=== PATIENT | male | born 1930 | race Caucasian/White ===

== ENCOUNTER → 2016-11-06 | Outpatient (CLI) | payer MEDICARE, BC ==
--- NOTE | 2016-11-06 13:40 | US ---
EXAMINATION TYPE: US kidneys/renal and bladder DATE OF EXAM: 11/06/2016 1:18 PM COMPARISON: CT in pacs October 03, 2016 CLINICAL HISTORY: History of kidney stones, hydronephrosis. EXAM MEASUREMENTS: Right Kidney: 12.2 x 6.0 x 5.3cm Left Kidney: 12.4 x 5.2 x 5.2cm TECHNOLOGIST IMPRESSION: Exam is slightly suboptimal secondary to patient's large body habitus. Right Kidney: 0.5cm echogenic focus inferior pole correlates with CT Left Kidney: wnl Bladder: limited visualization, not fully distended Bilateral Jets seen: no There is no evidence for hydronephrosis at this point in time. No masses are identified. The urinary bladder is poorly distended and thus suboptimally evaluated. IMPRESSION: Stable 5 mm nonobstructing calculus lower pole level right kidney. Interval resolution of right-sided hydronephrosis suggest passage of right ureter calculus. Clinical correlation advised. Normal Values: Renal Length = 9 - 12cm Bladder Wall: < 0.3cm
== END | disposition home or self-care (01) ==
LOC: RADUSWWP 12:52
PROVIDERS: ATTEND Urology
DX: N20.1 Calculus of ureter (principal)
CPT/HCPCS: 76770

== ENCOUNTER 2017-03-22 23:31 | Inpatient (IN) | payer MEDICARE, BC ==
--- NOTE | 2017-03-23 00:19 | ED ---
General Adult HPI - General Chief complaint: Fever Stated complaint: Fever/Back Pain Time Seen by Provider: 03/22/17 23:35 Source: patient Mode of arrival: EMS Limitations: no limitations - History of Present Illness Initial comments: This patient is an 86-year-old man transferred here from outside hospital to be admitted for suspected sepsis. The patient states that his symptoms began on , when he was not feeling quite right and had about 45 episodes of vomiting. He did not notice any blood or coffee-ground material. He states that he was not really having much in way of abdominal pain. he had no change in bowel movements or any bloody or dark tarry stools. Today, the patient states that he was feeling generally weak and fatigued. He took about a 3 hour nap which she states is unusual for him, and then when he woke he noticed that he had been incontinent of urine and he was feeling so weak that he couldn't stand. He was having trouble getting out of bed he phoned EMS who brought him to the other hospital. There he was found to have a fever, leukocytosis, and transferred here for additional evaluation and treatment. Patient denies having a significant cough or dyspnea. No chest pain. No abdominal pain. Patient has not had any further vomiting today or any change in bowel movements. Patient denies dysuria. Onset/Timin -: days(s) - Related Data Home Medications Medication Instructions Recorded Confirmed Lisinopril [Zestril] 2.5 mg PO QAM 05/25/15 03/23/17 glipiZIDE [Glucotrol] 10 mg PO DAILY 10/03/16 03/23/17 metFORMIN HCL [Glucophage] 500 mg PO W/SUPPER 10/03/16 03/23/17 Meloxicam 15 mg PO DAILY 03/22/17 03/23/17 Metoprolol Succinate (ER) [Toprol 100 mg PO DAILY 03/22/17 03/23/17 Xl] Rivaroxaban [Xarelto] 10 mg PO HS 03/22/17 03/23/17 metFORMIN HCL [Metformin HCl] 1,000 mg PO QAM 03/22/17 03/23/17 Allergies Allergy/AdvReac Type Severity Reaction Status Date / Time No Known Allergies Allergy Verified 03/22/17 23:44 Review of Systems ROS Statement: Those systems with pertinent positive or pertinent negative responses have been documented in the HPI. ROS Other: All systems not noted in ROS Statement are negative. Constitutional: Reports: fever, weakness Eyes: Denies: vision change Respiratory: Denies: cough, dyspnea, wheezes Cardiovascular: Denies: chest pain, palpitations, orthopnea Endocrine: Reports: fatigue Gastrointestinal: Reports: as per HPI, nausea, vomiting. Denies: abdominal pain , diarrhea, constipation, melena, hematochezia Genitourinary: Denies: dysuria, hematuria Musculoskeletal: Denies: back pain Skin: Denies: rash Neurological: Reports: weakness (Generalized). 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 History of Any Multi-Drug Resistant Organisms: None Reported Past Surgical History: Orthopedic Surgery Additional Past Surgical History / Comment(s): ANKLE SURG WITH PINS. Past Anesthesia/Blood Transfusion Reactions: No Reported Reaction Past Psychological History: No Psychological Hx Reported Smoking Status: Current every day smoker Past Alcohol Use History: Occasional Additional Past Alcohol Use History / Comment(s): CURRENTLY SMOKES A PIPE., STARTED SMOKING AROUND AGE 19. Past Drug Use History: None Reported - Past Family History Mother Family Medical History: No Reported History General Exam General appearance: alert, in no apparent distress Head exam: Present: atraumatic, normocephalic Eye exam: Present: normal appearance. Absent: scleral icterus, conjunctival injection ENT exam: Present: mucous membranes dry Neck exam: Present: normal inspection, full ROM Respiratory exam: Present: normal lung sounds bilaterally, rales (Bilateral bases). Absent: respiratory distress, wheezes, rhonchi, stridor Cardiovascular Exam: Present: normal rhythm, tachycardia, normal heart sounds. Absent: systolic murmur, diastolic murmur, rubs, gallop GI/Abdominal exam: Present: soft. Absent: distended, tenderness, guarding, rebound, mass Extremities exam: Present: normal inspection, normal capillary refill. Absent: pedal edema, calf tenderness Back exam: Present: normal inspection. Absent: CVA tenderness (R), CVA tenderness (L) Neurological exam: Present: alert. Absent: motor sensory deficit Skin exam: Present: warm, dry, intact, normal color. Absent: rash Course Vital Signs 03/22/17 03/23/17 03/23/17 23:42 01:28 02:35 Temperature 99.1 F 97.8 F 97.8 F Pulse Rate 116 H 99 88 Respiratory 20 18 18 Rate Blood Pressure 127/65 121/64 124/63 O2 Sat by Pulse 99 99 99 Oximetry - Reevaluation(s) Reevaluation #1: 03/23/17 03:31 Discussed medications with the patient he is not able to identify why he is taking the Xarelto. EKG Findings - EKG Results: EKG: interpreted by AMINA, sinus rhythm (Rate 89 bpm), normal axis, normal QRS, normal ST/T, no acute changes Medical Decision Making - Medical Decision Making This patient is an 86-year-old man transferred here from the outside hospital where he had gone for vomiting and weakness. The patient did appear septic, without obvious source of infection, on arrival there and was started on Zosyn transferred here. Patient has had cultures of blood and urine will be admitted here. The patient is currently not having flank pain, in fact is without any complaints here. - Lab Data Result diagrams: 03/23/17 00:39 03/23/17 00:39 Lab Results 03/23/17 03/23/17 03/23/17 Range/Units 00:39 00:39 00:39 WBC 19.1 H (3.8-10.6) k/uL RBC 3.68 L (4.30-5.90) m/uL Hgb 11.5 L (13.0-17.5) gm/dL Hct 35.0 L (39.0-53.0) % MCV 95.2 (80.0-100.0) fL MCH 31.2 (25.0-35.0) pg MCHC 32.8 (31.0-37.0) g/dL RDW 13.0 (11.5-15.5) % Plt Count 263 (150-450) k/uL Neutrophils % 90 % Lymphocytes % 4 % Monocytes % 4 % Eosinophils % 1 % Basophils % 0 % Neutrophils # 17.2 H (1.3-7.7) k/uL Lymphocytes # 0.7 L (1.0-4.8) k/uL Monocytes # 0.8 (0-1.0) k/uL Eosinophils # 0.1 (0-0.7) k/uL Basophils # 0.0 (0-0.2) k/uL Sodium 140 (137-145) mmol/L Potassium 4.7 (3.5-5.1) mmol/L Chloride 109 H (98-107) mmol/L Carbon Dioxide 21 L (22-30) mmol/L Anion Gap 10 mmol/L BUN 39 H (9-20) mg/dL Creatinine 1.80 H (0.66-1.25) mg/dL Est GFR (MDRD) Af Amer 44 (>60 ml/min/1.73 sqM) Est GFR (MDRD) Non-Af 36 (>60 ml/min/1.73 sqM) Glucose 225 H (74-99) mg/dL Plasma Lactic Acid Jay 1.5 (0.7-2.0) mmol/L Calcium 8.2 L (8.4-10.2) mg/dL Total Bilirubin 0.9 (0.2-1.3) mg/dL AST 19 (17-59) U/L ALT 26 (21-72) U/L Alkaline Phosphatase 70 (38-126) U/L Troponin I (0.000-0.034) ng/mL Total Protein 5.5 L (6.3-8.2) g/dL Albumin 3.2 L (3.5-5.0) g/dL 03/23/17 Range/Units 00:39 WBC (3.8-10.6) k/uL RBC (4.30-5.90) m/uL Hgb (13.0-17.5) gm/dL Hct (39.0-53.0) % MCV (80.0-100.0) fL MCH (25.0-35.0) pg MCHC (31.0-37.0) g/dL RDW (11.5-15.5) % Plt Count (150-450) k/uL Neutrophils % % Lymphocytes % % Monocytes % % Eosinophils % % Basophils % % Neutrophils # (1.3-7.7) k/uL Lymphocytes # (1.0-4.8) k/uL Monocytes # (0-1.0) k/uL Eosinophils # (0-0.7) k/uL Basophils # (0-0.2) k/uL Sodium (137-145) mmol/L Potassium (3.5-5.1) mmol/L Chloride (98-107) mmol/L Carbon Dioxide (22-30) mmol/L Anion Gap mmol/L BUN (9-20) mg/dL Creatinine (0.66-1.25) mg/dL Est GFR (MDRD) Af Amer (>60 ml/min/1.73 sqM) Est GFR (MDRD) Non-Af (>60 ml/min/1.73 sqM) Glucose (74-99) mg/dL Plasma Lactic Acid Ajy (0.7-2.0) mmol/L Calcium (8.4-10.2) mg/dL Total Bilirubin (0.2-1.3) mg/dL AST (17-59) U/L ALT (21-72) U/L Alkaline Phosphatase (38-126) U/L Troponin I <0.012 (0.000-0.034) ng/mL Total Protein (6.3-8.2) g/dL Albumin (3.5-5.0) g/dL Disposition Clinical Impression: Fever, SIRS (systemic inflammatory response syndrome), Hyperglycemia, Acute renal failure Disposition: ADMITTED IP TO THIS [facility] Condition: Fair
[2017-03-23 00:50] LABS: Basophils % (A) 0 %; CH 31.1; CHCM 32.8; Eosinophils # (A) 0.1 k/uL (0-0.7); Eosinophils % (A) 1 %; HDW 2.36; HGB 11.5 gm/dL (13.0-17.5); Luc # (Auto) 0.16; Luc % (Auto) 1; Lymphocytes # (A) 0.7 k/uL (1.0-4.8); Lymphocytes % (A) 4 %; MCH 31.2 pg (25.0-35.0); MCHC 32.8 g/dL (31.0-37.0); MCV 95.2 fL (80.0-100.0); Monocytes # (A) 0.8 k/uL (0-1.0); Monocytes % (A) 4 %; Neutrophils # (A) 17.2 k/uL (1.3-7.7); Neutrophils % (A) 90 %; RBC 3.68 m/uL (4.30-5.90); WBC 19.1 k/uL (3.8-10.6)
[2017-03-23 01:03] LABS: Calcium 8.2 mg/dL (8.4-10.2); Potassium 4.7 mmol/L (3.5-5.1); Total Bilirubin 0.9 mg/dL (0.2-1.3); Total Protein 5.5 g/dL (6.3-8.2)
[2017-03-23] MEDS ORDERED: PIPERACILLIN-TAZOBACTAM 3.375 GM in DEXTROSE/WATER 1 50ML.BAG IVPB STA (02:40)
[2017-03-23] MEDS ORDERED: LEVOFLOXACIN 750MG-D5W PMX 750 MG in DEXTROSE/WATER 1 150ML.BAG IVPB STA (02:40)
[2017-03-23 04:30] LABS: Appearance,Urine Clear (Clear); Bilirubin,Urine Negative (Negative); Glucose,Urine (UA) 3+ (Negative); Ketones,Urine Trace (Negative); Leukocyte Esterase,Urine Small (Negative); Mucus,Urine Rare /hpf; Nitrite,Urine Negative (Negative); Particle Count 1553; Protein,Urine Negative (Negative); RBC,Urine 2 /hpf (0-5); Specific Gravity,Urine 1.018 (1.001-1.035); UA Billing (MACRO vs. MICRO) MICRO; Urobilinogen,Urine <2.0 mg/dL (<2.0); WBC,Urine 10 /hpf (0-5)
[2017-03-23 07:13] LABS: Glucose,Whole Blood 106 mg/dL (75-99)
[2017-03-23] MEDS: INSULIN LISPRO (humaLOG) 300 UNIT/3 ML VIAL SQ SCH ×4 (07:34→21:23)
[2017-03-23] MEDS ORDERED: glipiZIDE 10 MG TAB PO SCH ×2 (09:00)
[2017-03-23] MEDS ORDERED: metFORMIN 500 MG TAB PO SCH ×2 (09:00→17:30)
[2017-03-23] MEDS: LISINOPRIL 2.5 MG TAB PO SCH (09:26)
[2017-03-23] MEDS: METOPROLOL SUCCINATE (ER) 100 MG TAB.ER.24H PO SCH (09:53)
[2017-03-23] MEDS ORDERED: POLYETHYLENE GLYCOL 3350 17 GM POWD.PACK PO PRN (09:57)
[2017-03-23] MEDS ORDERED: ACETAMINOPHEN TAB 325 MG TAB PO PRN (10:10)
--- NOTE | 2017-03-23 10:23 | P.HPIM ---
History of Present Illness H&P Date: 03/23/17 Chief Complaint: Generalized weakness This 86-year-old male patient presented to [facility] with a chief complaint of generalized weakness. Patient is from [facility] of both was camping in [place] and presented to the hospital there. Patient states he began feeling poorly on where he had multiple episodes of vomiting. The ER charting says 45 but the patient states it was 5 episodes. He denies any abdominal pain. He states that his emesis was of the food that he had eaten a milky substance he denies any hematemesis. Denies biliary emesis. States has had intermittent fever and chills. He states the intermittent fever and chills sensation still is occurring today. He states he was feeling well enough Saturday03/22/17 to go camping up in [place]. He states he ate breakfast of a cinnamon roll that morning and coffee. However, he began to feel more tired and slept the rest of the day. He states he was transported to the hospital by some friends in the evening around 7 or 8 PM. He denies any lateralizing deficits or speech changes. No dysuria. No hematuria. Patient does have intermittent right hip pain which he states he's had on and off for months. Patient did have a right hydronephrosis diagnosed last September that then subsequently appeared to have cleared on intervening films but was seen again on CAT scan from [place] on 03/22. Patient was seen and evaluated in [place]'s emergency room, did have the aforementioned CT scan which did reveal the right hydronephrosis with distal right renal lithiasis. Stone is 7 mm in diameter and the hydronephrosis is read as moderate with mild hydroureter. An additional punctate nonobstructing stone was seen in the right kidney. No dilated loops of bowel were seen. Sigmoid diverticulosis was noted. Patient is counseled to avoid nuts, seeds, popcorn and eat a higher fiber diet on discharge after his health is otherwise improved. No bulky lymphadenopathy was seen. The aorta was not noted to be dilated. Urinary bladder was noted to be normal. The findings were limited by lack of IV contrast but the unenhanced liver, gallbladder, pancreas, spleen, adrenal glands and left kidney show no abnormality. There are no dilated loops of bowel. Patient did have a CT of the chest without contrast as well which revealed no consolidation or effusion, some mild multifocal parenchymal scarring is seen. Some coronary and aortic calcific atherosclerosis. There were a few mildly prominent lymph nodes but none by no ethel enlargement by CT criteria. Old abnormalities of the ribs from prior known rib fractures were seen. Review of Systems General: Patient complains a sensation of fever and chills. Positive nausea and vomiting on . No further nausea today. No further emesis. Please see GI HEENT: No visual changes but does have cataracts and was supposed to have right cataract surgery which was canceled due to his illness.. No eye pain. No nasal symptoms. No dysphagia.No odynophagia. No ENT pain. Cardiac: No chest pain. No palpitations. Patient states he does have a history of an irregular heart rhythm and that is why he is on Xarelto. He is in a sinus rhythm on EKG on admission and by auscultation today. Pulmonary: No dyspnea. No productive cough. No prominent cough. GI: No abdominal pain. No diarrhea. Last bowel movement was 03/19. Normal pattern is every 2-3 days. No melena. No hematochezia. See general. Positive nausea and emesis . : No dysuria.No hematuria. No hesitancy. No urgency. Positive history of renal lithiasis with hydronephrosis seen on films from 09/2016. Musculoskeletal: Patient states he does have some history of arthritis in his hands with some mild hand pain at times. He does have a history of prior fractures of his ribs. Orthopedic: Prior rib fracture please see musculoskeletal. History of orthopedic surgery and ankle with pins. Integumentary: Denies rash. Denies pruritis. Neurologic: Denies any lateralizing weakness. Did have global weakness upon admission. Denies numbness. Denies tingling. No seizure activity. Denies TIA or CVA history. Endocrine: Positive history of diabetes 20 years controlled on oral medications. No history of thyroid disorder. Heme/Onc: No known history of anemia cancer or adenopathy. Patient is mildly anemic on labs and will check studies. Allergic/Immunologic: No ALLERGIC or immunologic history reported. 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 Patient reports history of arrhythmia for which he is on Xarelto. History of Any Multi-Drug Resistant Organisms: None Reported Past Surgical History: Orthopedic Surgery Additional Past Surgical History / Comment(s): ANKLE SURG WITH PINS. Past Anesthesia/Blood Transfusion Reactions: No Reported Reaction Past Psychological History: No Psychological Hx Reported Smoking Status: Current every day smoker Past Alcohol Use History: Occasional Additional Past Alcohol Use History / Comment(s): CURRENTLY SMOKES A PIPE., STARTED SMOKING AROUND AGE 19. Past Drug Use History: None Reported Additional History: Patient states that his instead from cancer, his child is from an overdose but has 3 remaining grandchildren. 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 - Past Family History Mother Family Medical History: No Reported History Father Family Medical History: No Reported History Medications and Allergies Home Medications Medication Instructions Recorded Confirmed Type Lisinopril [Zestril] 2.5 mg PO QAM 05/25/15 03/23/17 History glipiZIDE [Glucotrol] 10 mg PO DAILY 10/03/16 03/23/17 History metFORMIN HCL [Glucophage] 500 mg PO W/SUPPER 10/03/16 03/23/17 History Meloxicam 15 mg PO DAILY 03/22/17 03/23/17 History Metoprolol Succinate (ER) [Toprol 100 mg PO DAILY 03/22/17 03/23/17 History Xl] Rivaroxaban [Xarelto] 10 mg PO HS 03/22/17 03/23/17 History metFORMIN HCL [Metformin HCl] 1,000 mg PO QAM 03/22/17 03/23/17 History Travoprost [Travatan Z 0.004%] 1 drop BOTH EYES HS 03/24/17 03/24/17 History Allergies Allergy/AdvReac Type Severity Reaction Status Date / Time No Known Allergies Allergy Verified 03/22/17 23:44 Physical Exam Osteopathic Statement: *. No significant issues noted on an osteopathic structural exam other than those noted in the History and Physical/Consult. Vitals: Vital Signs Temp Pulse Pulse Resp BP BP Pulse Ox 03/23/17 07:00 97.0 F L 104 H 18 135/68 97 03/23/17 03:50 97.0 F L 98 16 144/72 100 03/23/17 03:48 97.8 F 88 18 124/63 99 03/23/17 02:35 97.8 F 88 18 124/63 99 03/23/17 01:28 97.8 F 99 18 121/64 99 03/22/17 23:42 99.1 F 116 H 20 127/65 99 Intake and Output 03/22/17 03/23/17 03/23/17 22:59 06:59 14:59 Output Total 300 Balance -300 Output: Urine 300 Other: Voiding Method Urinal # Voids 1 Weight 95.254 kg General: Patient awake alert and oriented x 3. No acute distress. HEENT: Sclerae are clear. Pupils equal, round and reactive to light bilaterally. No cervical adenopathy. No pharyngeal erythema or exudate. No thyromegaly. Lymphatic: No anterior cervical adenopathy. Chest: Heart regular in rate and rhythm positive S1 and S2. No S3. No S4. No clicks, rubs or murmurs. Lungs: Clear to auscultation bilaterally. No wheezes rales or rhonchi. Respirations even and nonlabored. Abdomen/GI: Bowel sounds present in all 4 quadrants. Bowel sounds normoactive. No abdominal tenderness reported. No guarding, rebound, or rigidity. Abdomen is distended. No mass. No hepatomegaly or splenomegaly palpated. Abdomen is obese. No bruits. Rectal exam reveals normal tone there is soft stool in the vault at the tip of the examining finger but not enough extracted to send to the lab for Hemoccult. That which is seen is brown. No rectal mass or tenderness. : No penile discharge. No hernia palpated. No external abnormalities noted. Musculoskeletal/ Extremities: No tenderness on muscular exam. No ecchymosis. Vascular: Radial pulses equal. 2/4. Dorsalis pedis pulses 1 out of 4 on the left and not able to palpate well on the right but do feel a posterior tibial pulse on the right 1 out of 4. Feet are cool. Poor hair growth distally suggestive of chronic vascular disease. [place] medication on left great toe being treated for onychomycosis. Skin: No rash. No sacral breakdown.No heel breakdown. Neurologic: Awake, alert and oriented times 3. No facial droop. Speech is clear. Patient is able to provide full history. He is alert and oriented to self, place and day of the week. Able to provide timeline of the events. 5- out of 5 nutrition associate strength bilaterally. 5- out of 5 biceps and triceps bilaterally. 5- out of 5 quadriceps hamstrings and EHL strength bilaterally. No pronator drift. Pupils equal round and reactive. Extraocular movements intact. Patient reports not as weak as when he came in now however still not sure he will be able to ambulate on his own. Ortho: Chronic joint changes of the hands noted. no acute joint inflammation. Psychiatric: Patient denies depression or anxiety. However does appear sad when discussing of his and child. Denies need for counseling services. Results CBC & Chem 7: 03/25/17 07:30 03/25/17 07:30 Labs: Abnormal Lab Results - Last 24 Hours (Table) 03/23/17 03/23/17 03/23/17 Range/Units 00:39 00:39 04:15 WBC 19.1 H (3.8-10.6) k/uL RBC 3.68 L (4.30-5.90) m/uL Hgb 11.5 L (13.0-17.5) gm/dL Hct 35.0 L (39.0-53.0) % Neutrophils # 17.2 H (1.3-7.7) k/uL Lymphocytes # 0.7 L (1.0-4.8) k/uL Chloride 109 H (98-107) mmol/L Carbon Dioxide 21 L (22-30) mmol/L BUN 39 H (9-20) mg/dL Creatinine 1.80 H (0.66-1.25) mg/dL Glucose 225 H (74-99) mg/dL POC Glucose (mg/dL) (75-99) mg/dL Calcium 8.2 L (8.4-10.2) mg/dL Total Protein 5.5 L (6.3-8.2) g/dL Albumin 3.2 L (3.5-5.0) g/dL Urine Glucose (UA) 3+ H (Negative) Urine Ketones Trace H (Negative) Ur Leukocyte Esterase Small H (Negative) Urine WBC 10 H (0-5) /hpf Urine Mucus Rare H (None) /hpf 03/23/17 Range/Units 07:11 WBC (3.8-10.6) k/uL RBC (4.30-5.90) m/uL Hgb (13.0-17.5) gm/dL Hct (39.0-53.0) % Neutrophils # (1.3-7.7) k/uL Lymphocytes # (1.0-4.8) k/uL Chloride (98-107) mmol/L Carbon Dioxide (22-30) mmol/L BUN (9-20) mg/dL Creatinine (0.66-1.25) mg/dL Glucose (74-99) mg/dL POC Glucose (mg/dL) 106 H (75-99) mg/dL Calcium (8.4-10.2) mg/dL Total Protein (6.3-8.2) g/dL Albumin (3.5-5.0) g/dL Urine Glucose (UA) (Negative) Urine Ketones (Negative) Ur Leukocyte Esterase (Negative) Urine WBC (0-5) /hpf Urine Mucus (None) /hpf CT scan - abdomen: report reviewed (See HPI.) CT scan - chest: report reviewed (See HPI.) Thrombosis Risk Factor Assmnt - DVT/VTE Prophylaxis DVT/VTE Prophylaxis: Pharmacologic Prophylaxis ordered, Mechanical Prophylaxis ordered - Choose All That Apply Each Factor Represents 1 point: Obesity (BMI >25) Each Risk Factor Represents 2 Points: Patient confined to bed (Due to weakness.) Each Risk Factor Represents 3 Points: Age 75 years or older Thrombosis Risk Factor Assessment Total Risk Factor Score: 6 Thrombosis Risk Factor Assessment Level: High Risk Assessment and Plan Plan: Assessment 1. Sepsis with urinary versus abdominal source. Cultures were received by lab and are pending 2. Renal lithiasis with obstructive hydronephrosis. 3. Diabetes mellitus. 4. Acute possibly on chronic renal failure with acute component secondary to dehydration and obstruction. Creatinine normal 2014 but has been elevated end of 2016 at the time of hydronephrosis and obstruction. 5. Hypetension, essential by history. 6. History of chronic tobacco use. 7. 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 8. Osteoarthritis. Plan: 1. Await cultures. Spoke with [place] lab. Their results get sent to [facility] but have not yet been sent. Our cultures here were drawn but are not yet showing any growth. 2. Continue Zosyn and Levofloxacin. 3. Spoke with Dr. Anderson of urology who will evaluate the patient's hydronephrosis. 4. Hold metformin and enalapril in light of worsened renal function and sepsis. 5. Hold meloxicam in light of vomiting and worsened renal failure. 6. SCDs. 7. continue Xarelto unless needs to be held for any surgical procedure planned by Dr. Anderson. 8. NPO until evaluated by Dr. Anderson. 9. Insulin sliding scale. 10. Repeat labs at 1 pm and check Mg, Phos.
[2017-03-23] MEDS: SODIUM CHLORIDE 0.9% 1,000 ML IV SCH ×3 (11:05→21:24)
[2017-03-23 12:43] LABS: Glucose,Whole Blood 92 mg/dL (75-99)
--- NOTE | 2017-03-23 13:04 | P.GSCN ---
History of Present Illness Consult date: 03/23/17 History of present illness: This is a pleasant 86-year-old gentleman transferred from [place] because of a right ureteral stone, probable urinary tract infection with sepsis. The patient was in his usual state of health until when he started feeling poorly. He was having fever and chills. He was tachycardic. He presented to the [facility]. He was referred down to [facility] because of an obstructing right ureteral stone distally white count of 19,000 and elevated creatinine to 1.8. Urine appears to be mildly infected. Most likely this patient has a urinary tract infection with sepsis, an obstructing stone, pyonephrosis. He has no significant history of stones however he was seen in our office about 2 months ago for a possible stone. He generally just doesn't feel well. His vital signs are stable although he looks like he doesn't feel well he is cold and clammy. This patient needs double-J catheter to relieve the obstruction and probable infected urine. 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 Patient reports history of arrhythmia for which he is on Xarelto. History of Any Multi-Drug Resistant Organisms: None Reported Past Surgical History: Orthopedic Surgery Additional Past Surgical History / Comment(s): ANKLE SURG WITH PINS. Past Anesthesia/Blood Transfusion Reactions: No Reported Reaction Past Psychological History: No Psychological Hx Reported Smoking Status: Current every day smoker Past Alcohol Use History: Occasional Additional Past Alcohol Use History / Comment(s): CURRENTLY SMOKES A PIPE., STARTED SMOKING AROUND AGE 19. Past Drug Use History: None Reported - Past Family History Father Family Medical History: No Reported History Mother Family Medical History: No Reported History Medications and Allergies Home Medications Medication Instructions Recorded Confirmed Type Lisinopril [Zestril] 2.5 mg PO QAM 05/25/15 03/23/17 History glipiZIDE [Glucotrol] 10 mg PO DAILY 10/03/16 03/23/17 History metFORMIN HCL [Glucophage] 500 mg PO W/SUPPER 10/03/16 03/23/17 History Meloxicam 15 mg PO DAILY 03/22/17 03/23/17 History Metoprolol Succinate (ER) [Toprol 100 mg PO DAILY 03/22/17 03/23/17 History Xl] Rivaroxaban [Xarelto] 10 mg PO HS 03/22/17 03/23/17 History metFORMIN HCL [Metformin HCl] 1,000 mg PO QAM 03/22/17 03/23/17 History Allergies Allergy/AdvReac Type Severity Reaction Status Date / Time No Known Allergies Allergy Verified 03/22/17 23:44 Surgical - Exam Vital Signs Temp Pulse Resp BP Pulse Ox 99.1 F 116 H 20 127/65 99 03/22/17 23:42 03/22/17 23:42 03/22/17 23:42 03/22/17 23:42 03/22/17 23:42 - General well developed, well nourished, moderate distress - Eyes PERRL - ENT no hearing loss - Neck trachea midline - Respiratory normal respiratory effort - Cardiovascular Rhythm: regular - Abdomen Abdomen: soft, non tender - Genitourinary normal penis with no external lesions - Neurologic normal coordination - Psychiatric oriented to time, oriented to person, oriented to place, speech is normal, memory intact Results - Labs 03/23/17 00:39 03/23/17 00:39 Abnormal Lab Results - Last 24 Hours (Table) 03/23/17 03/23/17 03/23/17 Range/Units 00:39 00:39 04:15 WBC 19.1 H (3.8-10.6) k/uL RBC 3.68 L (4.30-5.90) m/uL Hgb 11.5 L (13.0-17.5) gm/dL Hct 35.0 L (39.0-53.0) % Neutrophils # 17.2 H (1.3-7.7) k/uL Lymphocytes # 0.7 L (1.0-4.8) k/uL Chloride 109 H (98-107) mmol/L Carbon Dioxide 21 L (22-30) mmol/L BUN 39 H (9-20) mg/dL Creatinine 1.80 H (0.66-1.25) mg/dL Glucose 225 H (74-99) mg/dL POC Glucose (mg/dL) (75-99) mg/dL Calcium 8.2 L (8.4-10.2) mg/dL Total Protein 5.5 L (6.3-8.2) g/dL Albumin 3.2 L (3.5-5.0) g/dL Urine Glucose (UA) 3+ H (Negative) Urine Ketones Trace H (Negative) Ur Leukocyte Esterase Small H (Negative) Urine WBC 10 H (0-5) /hpf Urine Mucus Rare H (None) /hpf 03/23/17 Range/Units 07:11 WBC (3.8-10.6) k/uL RBC (4.30-5.90) m/uL Hgb (13.0-17.5) gm/dL Hct (39.0-53.0) % Neutrophils # (1.3-7.7) k/uL Lymphocytes # (1.0-4.8) k/uL Chloride (98-107) mmol/L Carbon Dioxide (22-30) mmol/L BUN (9-20) mg/dL Creatinine (0.66-1.25) mg/dL Glucose (74-99) mg/dL POC Glucose (mg/dL) 106 H (75-99) mg/dL Calcium (8.4-10.2) mg/dL Total Protein (6.3-8.2) g/dL Albumin (3.5-5.0) g/dL Urine Glucose (UA) (Negative) Urine Ketones (Negative) Ur Leukocyte Esterase (Negative) Urine WBC (0-5) /hpf Urine Mucus (None) /hpf Diabetes panel 03/23/17 Range/Units 00:39 Sodium 140 (137-145) mmol/L Potassium 4.7 (3.5-5.1) mmol/L Chloride 109 H (98-107) mmol/L Carbon Dioxide 21 L (22-30) mmol/L BUN 39 H (9-20) mg/dL Creatinine 1.80 H (0.66-1.25) mg/dL Glucose 225 H (74-99) mg/dL Calcium 8.2 L (8.4-10.2) mg/dL AST 19 (17-59) U/L ALT 26 (21-72) U/L Alkaline Phosphatase 70 (38-126) U/L Total Protein 5.5 L (6.3-8.2) g/dL Albumin 3.2 L (3.5-5.0) g/dL Calcium panel 03/23/17 Range/Units 00:39 Calcium 8.2 L (8.4-10.2) mg/dL Albumin 3.2 L (3.5-5.0) g/dL Pituitary panel 03/23/17 Range/Units 00:39 Sodium 140 (137-145) mmol/L Potassium 4.7 (3.5-5.1) mmol/L Chloride 109 H (98-107) mmol/L Carbon Dioxide 21 L (22-30) mmol/L BUN 39 H (9-20) mg/dL Creatinine 1.80 H (0.66-1.25) mg/dL Glucose 225 H (74-99) mg/dL Calcium 8.2 L (8.4-10.2) mg/dL Adrenal panel 03/23/17 Range/Units 00:39 Sodium 140 (137-145) mmol/L Potassium 4.7 (3.5-5.1) mmol/L Chloride 109 H (98-107) mmol/L Carbon Dioxide 21 L (22-30) mmol/L BUN 39 H (9-20) mg/dL Creatinine 1.80 H (0.66-1.25) mg/dL Glucose 225 H (74-99) mg/dL Calcium 8.2 L (8.4-10.2) mg/dL Total Bilirubin 0.9 (0.2-1.3) mg/dL AST 19 (17-59) U/L ALT 26 (21-72) U/L Alkaline Phosphatase 70 (38-126) U/L Total Protein 5.5 L (6.3-8.2) g/dL Albumin 3.2 L (3.5-5.0) g/dL Assessment and Plan Plan: Impression: Obstructing right ureteral stone, acute renal failure due to obstruction, urinary tract infection with sepsis, pyonephrosis, diabetes. Recommendations this patient appears to be septic based on laboratory and clinical findings. With the obstructing stone, the elevated creatinine, and elevated white load cell count and his diabetes I think it would be appropriate to place a double-J catheter urgently this afternoon to relieve the obstruction and probable sepsis. This will be done with sedation later this afternoon.
[2017-03-23 14:04] LABS: Basophils % (A) 0 %; CH 30.9; Eosinophils # (A) 0.1 k/uL (0-0.7); Eosinophils % (A) 1 %; HCT 37.8 % (39.0-53.0); HDW 2.36; HGB 12.1 gm/dL (13.0-17.5); Luc # (Auto) 0.21; Luc % (Auto) 2; Lymphocytes # (A) 0.5 k/uL (1.0-4.8); Lymphocytes % (A) 4 %; MCH 31.1 pg (25.0-35.0); MCHC 32.1 g/dL (31.0-37.0); MCV 96.8 fL (80.0-100.0); Mean Platelet Volume 6.5; Monocytes # (A) 0.8 k/uL (0-1.0); Monocytes % (A) 6 %; Neutrophils # (A) 11.5 k/uL (1.3-7.7); Neutrophils % (A) 88 %; RBC 3.91 m/uL (4.30-5.90); WBC (Perox) 14.07
[2017-03-23 14:09] LABS: Hemoglobin A1C 6.9 % (4.2-6.1)
[2017-03-23 14:19] LABS: Phosphorous 2.3 mg/dL (2.5-4.5)
[2017-03-23 14:20] LABS: Calcium 8.7 mg/dL (8.4-10.2); Magnesium 1.4 mg/dL (1.6-2.3); Potassium 4.7 mmol/L (3.5-5.1)
[2017-03-23 14:27] LABS: % Iron Saturation 7.4 % (20-50)
[2017-03-23] MEDS ORDERED: MIDAZOLAM 2 MG/2 ML VIAL ONE (14:31)
[2017-03-23] MEDS ORDERED: LIDOCAINE 1% INJ 10MG/ML (20 ML MDV) ONE (14:31)
[2017-03-23] MEDS ORDERED: IV FLUID CONTINUATION 300 ML IV ONE (14:31)
[2017-03-23] MEDS ORDERED: PROPOFOL 10 MG/ML 20 ML VIAL IV ONE (14:31)
[2017-03-23] MEDS ORDERED: METOPROLOL TARTRATE 5 MG/5 ML VIAL IVP ONE (14:31)
[2017-03-23] MEDS ORDERED: LIDOCAINE URO-JET JELLY 2% 5 ML KIT URETHRAL ONE (14:43)
[2017-03-23] MEDS ORDERED: LACTATED RINGERS 1,000 ML IV ONE (14:54)
--- NOTE | 2017-03-23 15:03 | P.OP ---
Date of Procedure: 03/23/17 Preoperative Diagnosis: Right ureteral stone, urinary tract infection with sepsis, pyonephrosis Postoperative Diagnosis: Same Procedure(s) Performed: Cystoscopy placement of double-J catheter 6 x 26 right Implants: Anesthesia: MAC Surgeon: Jovanni Anderson Estimated Blood Loss (ml): 0 Pathology: none sent Condition: stable Disposition: PACU Indications for Procedure: The patient is an 86-year-old gentleman transferred from [place] with an obstructing stone urinary tract infection with sepsis and acute renal failure due to the obstruction. He comes for emergent stent placement to relieve the obstruction and drain the pyonephrosis Operative Findings: Description of Procedure: The patient is brought to the operating suite he's placed on the operating table in supine position. He is given IV sedation. Saline came jelly was introduced into the urethra after sterile prep and drape. Cystoscopy Foroblique lens and 22-Cypriot sheath identifies a normal urethra. The prostate minimally obstructing. There is cystitis on the floor the bladder. The right ureteral orifice is intubated with a 035 straight wire. It bypasses the obstructing stone. Over the wires passed a 6 x 26 double-J catheter that coils in the renal pelvis and in the bladder. The stone was distinctly of impacted. There was hydronephrotic de la torre. The bladder is drained and the cystoscope was removed the patient's awake and returned recovery room in good condition.
[2017-03-23 15:11] LABS: Glucose,Whole Blood 98 mg/dL (75-99)
[2017-03-23] MEDS: PIPERACILLIN-TAZOBACTAM 3.375 GM in DEXTROSE/WATER 1 50ML.BAG IVPB SCH ×2 (16:28→23:54)
[2017-03-23 17:01] LABS: Glucose,Whole Blood 129 mg/dL (75-99)
--- NOTE | 2017-03-23 19:02 | FL ---
Fluoroscopy HISTORY: Cystoscopy with stent 5 seconds fluoroscopy time supplied to the referring clinician. 1 intraoperative C-arm images docume nt the procedure. See dictated report from urology.
[2017-03-23 20:29] LABS: Glucose,Whole Blood 137 mg/dL (75-99)
[2017-03-23] MEDS: RIVAROXABAN 10 MG TAB PO SCH (21:23)
[2017-03-24 07:12] LABS: Glucose,Whole Blood 117 mg/dL (75-99)
[2017-03-24] MEDS: INSULIN LISPRO (humaLOG) 300 UNIT/3 ML VIAL SQ SCH ×4 (07:33→21:59)
[2017-03-24] MEDS: LISINOPRIL 2.5 MG TAB PO SCH (07:47)
[2017-03-24] MEDS ORDERED: LEVOFLOXACIN 750MG-D5W PMX 750 MG in DEXTROSE/WATER 1 150ML.BAG IVPB SCH (09:00)
[2017-03-24] MEDS: PIPERACILLIN-TAZOBACTAM 3.375 GM in DEXTROSE/WATER 1 50ML.BAG IVPB SCH (09:08)
[2017-03-24] MEDS: METOPROLOL SUCCINATE (ER) 100 MG TAB.ER.24H PO SCH (09:08)
[2017-03-24 12:45] LABS: Glucose,Whole Blood 216 mg/dL (75-99)
[2017-03-24] MEDS ORDERED: GENTAMICIN PER PHARMACY MISCELLANE PRN (13:04)
--- NOTE | 2017-03-24 13:18 | P.PN ---
Subjective Principal diagnosis: Sepsis This 86 year old male presented with generalized weakness and with workup was determined to have sepsis with a urinary source. Growing Group D Enterococcus in blood cultures. Patient seen and examined this afternoon. Patient states he is feeling better. He states he did feel a little bit disoriented yesterday and is feeling better today. Patient is much more awake and alert and appropriate. QUESTIONS answered regarding patient's current stent, infection. Spoke with granddaughter on the unit as well regarding her questions and concerns. Patient states that his right hip pain that he had been having intermittently is improved. Denies other pain at this time. No dyspnea. Still generally weak but is feeling up to getting up in chair. States he had noted a decrease in his urine output in the day prior to admission which he states seems to be improved today. Objective - Vital Signs Vital signs: Vital Signs Temp 97.0 F L 03/24/17 07:00 Pulse 98 03/24/17 07:00 Resp 16 03/24/17 07:00 BP 158/89 03/24/17 07:00 Pulse Ox 96 03/24/17 07:00 Intake & Output 03/23/17 03/24/17 03/24/17 18:59 06:59 18:59 Intake Total 1000 Output Total 550 575 Balance 450 -575 Intake: IV 400 Oral 600 Output: Urine 550 575 Estimated Blood Loss 0 Other: Voiding Method Urinal Urinal # Voids 1 2 - Exam General: Patient awake alert and oriented x 3. No acute distress. Not as fatigued as yesterday. HEENT: Sclerae are clear. Pupils equal, round and reactive to light bilaterally. No cervical adenopathy. No pharyngeal erythema or exudate. No thyromegaly. Lymphatic: No anterior cervical adenopathy. Chest: Heart regular in rate and rhythm positive S1 and S2. No S3. No S4. No clicks, rubs or murmurs. Lungs: Clear to auscultation bilaterally. No wheezes rales or rhonchi. Respirations even and nonlabored. Abdomen/GI: Bowel sounds present in all 4 quadrants. Bowel sounds normoactive. No abdominal tenderness. Musculoskeletal/ Extremities: No tenderness on muscular exam. No ecchymosis. Vascular: Radial pulses equal. 2/4. Ankles with minimal edema. Skin: No rash. Neurologic: Awake, alert and oriented times 3. No lateralizing deficits noted on gross inspection. - Labs CBC & Chem 7: 03/23/17 13:47 03/23/17 13:47 Labs: Abnormal Lab Results - Last 24 Hours (Table) 03/23/17 03/23/17 03/23/17 Range/Units 00:39 13:47 13:47 WBC 13.0 H (3.8-10.6) k/uL RBC 3.91 L (4.30-5.90) m/uL Hgb 12.1 L (13.0-17.5) gm/dL Hct 37.8 L (39.0-53.0) % Neutrophils # 11.5 H (1.3-7.7) k/uL Lymphocytes # 0.5 L (1.0-4.8) k/uL Chloride 109 H (98-107) mmol/L Carbon Dioxide 21 L (22-30) mmol/L BUN 35 H (9-20) mg/dL Creatinine 1.60 H (0.66-1.25) mg/dL POC Glucose (mg/dL) (75-99) mg/dL Hemoglobin A1c 6.9 H (4.2-6.1) % Phosphorus (2.5-4.5) mg/dL Magnesium 1.4 L (1.6-2.3) mg/dL Iron (49-181) ug/dL % Saturation (20-50) % 03/23/17 03/23/17 03/23/17 Range/Units 13:47 16:53 20:27 WBC (3.8-10.6) k/uL RBC (4.30-5.90) m/uL Hgb (13.0-17.5) gm/dL Hct (39.0-53.0) % Neutrophils # (1.3-7.7) k/uL Lymphocytes # (1.0-4.8) k/uL Chloride (98-107) mmol/L Carbon Dioxide (22-30) mmol/L BUN (9-20) mg/dL Creatinine (0.66-1.25) mg/dL POC Glucose (mg/dL) 129 H 137 H (75-99) mg/dL Hemoglobin A1c (4.2-6.1) % Phosphorus 2.3 L (2.5-4.5) mg/dL Magnesium (1.6-2.3) mg/dL Iron 20 L (49-181) ug/dL % Saturation 7.4 L (20-50) % 03/24/17 Range/Units 07:10 WBC (3.8-10.6) k/uL RBC (4.30-5.90) m/uL Hgb (13.0-17.5) gm/dL Hct (39.0-53.0) % Neutrophils # (1.3-7.7) k/uL Lymphocytes # (1.0-4.8) k/uL Chloride (98-107) mmol/L Carbon Dioxide (22-30) mmol/L BUN (9-20) mg/dL Creatinine (0.66-1.25) mg/dL POC Glucose (mg/dL) 117 H (75-99) mg/dL Hemoglobin A1c (4.2-6.1) % Phosphorus (2.5-4.5) mg/dL Magnesium (1.6-2.3) mg/dL Iron (49-181) ug/dL % Saturation (20-50) % Microbiology - Last 24 Hours (Table) 03/23/17 04:15 Urine Culture - Final Urine,Voided 03/23/17 03:04 Blood Culture Gram Stain - Preliminary Blood Blood Culture - Preliminary Group D Enterococcus 03/23/17 03:04 Blood Culture - Preliminary Blood No Growth after 24 hours Assessment and Plan Plan: Assessment 1. Sepsis secondary to urinary infection with urinary obstruction now improved with double J catheter placed by urology. Positive Group D Enterococcus Bacteremia. 2. Renal lithiasis with obstructive hydronephrosis, now s/p double j catheter. 3. Diabetes mellitus with retinopathy per patient history. 4. Acute possibly on chronic renal failure with acute component secondary to dehydration and obstruction. Creatinine normal 2014 but has been elevated end of 2015 at the time of hydronephrosis and obstruction. 5. Hypetension, essential by history. 6. History of chronic tobacco use. 7. 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 8. Osteoarthritis. 9. Glaucoma history likely as patient indicated needed eye drops and those brought in are Travatan 0.004%. 10. Iron deficiency anemia with retained stores vs. phase reaction up of ferritin. 11. Hypophosphatemia. 12. Hypomagnesemia. Plan: 1. Regarding cultures, spoke with [facility] yesterday. Their results get sent to [facility] but do not have reported results yet. After speaking to [facility] and attempting to call [facility] back ([facility] indicates that we would have to get the results from [facility]) unable to get anyone to answer the phone. Our cultures here were drawn and reveal Group D Enterococcus bacteremia. 2. Change to Unasyn and Gent as growth of group d enterococcus from blood cultures for bacteriocidal coverage with gentamicin. 3. Add daily ferrous sulfate with some degree of iron deficiency and anemia, will need outpatient follow-up to determine accuracy of result versus phase reaction and if true begin work up for source of blood loss. 4. Hold metformin and enalapril in light of worsened renal function and sepsis. 5. Hold meloxicam in light of vomiting and worsened renal failure. 6. SCDs. 7. continue Xarelto and monitor for any bleeding. 8. Back on diabetic diet. 9. Insulin sliding scale. 10. Magnesium replaced and will follow up. 11. Travatan eyedrops brought in by family and will order. 12. Urology recommendations for continued antibiotic therapy prior to any additional surgical intervention appreciated. 13. Phosphorus replaced. 14. Follow electrolytes in AM. 15. Repeat blood cultures to ensure resolution as risk of endocarditis with this bacteria.
[2017-03-24] MEDS ORDERED: POTAS-SOD-PHOS 278-164-250 MG 1 EACH PACKET PO STA (13:22)
--- NOTE | 2017-03-24 13:46 | P.PN ---
Subjective The patient was transferred to [place] from [place] because of urinary tract infection with sepsis. Cystoscopy and placement of right double-J catheter was done yesterday to relieve the obstruction, pyelonephrosis and aid in the treatment of the sepsis. He had acute renal failure due to the obstruction that should be relieved from the catheter. Plan is to treat with antibiotics for approximately 10 days and then do a secondary ureteroscopy stent and stone removal. This has been explained to the and in the patient. He clinically seems to be doing better today with stable vital signs. Objective - Vital Signs Vital signs: Vital Signs Temp 97.0 F L 03/24/17 07:00 Pulse 98 03/24/17 07:00 Resp 16 03/24/17 07:00 BP 158/89 03/24/17 07:00 Pulse Ox 96 03/24/17 07:00 Intake & Output 03/23/17 03/24/17 03/24/17 18:59 06:59 18:59 Intake Total 1000 Output Total 550 575 Balance 450 -575 Intake: IV 400 Oral 600 Output: Urine 550 575 Estimated Blood Loss 0 Other: Voiding Method Urinal Urinal # Voids 1 2 - Labs CBC & Chem 7: 03/23/17 13:47 03/23/17 13:47 Labs: Abnormal Lab Results - Last 24 Hours (Table) 03/23/17 03/23/17 03/23/17 Range/Units 00:39 13:47 13:47 WBC 13.0 H (3.8-10.6) k/uL RBC 3.91 L (4.30-5.90) m/uL Hgb 12.1 L (13.0-17.5) gm/dL Hct 37.8 L (39.0-53.0) % Neutrophils # 11.5 H (1.3-7.7) k/uL Lymphocytes # 0.5 L (1.0-4.8) k/uL Chloride 109 H (98-107) mmol/L Carbon Dioxide 21 L (22-30) mmol/L BUN 35 H (9-20) mg/dL Creatinine 1.60 H (0.66-1.25) mg/dL POC Glucose (mg/dL) (75-99) mg/dL Hemoglobin A1c 6.9 H (4.2-6.1) % Phosphorus (2.5-4.5) mg/dL Magnesium 1.4 L (1.6-2.3) mg/dL Iron (49-181) ug/dL % Saturation (20-50) % 03/23/17 03/23/17 03/23/17 Range/Units 13:47 16:53 20:27 WBC (3.8-10.6) k/uL RBC (4.30-5.90) m/uL Hgb (13.0-17.5) gm/dL Hct (39.0-53.0) % Neutrophils # (1.3-7.7) k/uL Lymphocytes # (1.0-4.8) k/uL Chloride (98-107) mmol/L Carbon Dioxide (22-30) mmol/L BUN (9-20) mg/dL Creatinine (0.66-1.25) mg/dL POC Glucose (mg/dL) 129 H 137 H (75-99) mg/dL Hemoglobin A1c (4.2-6.1) % Phosphorus 2.3 L (2.5-4.5) mg/dL Magnesium (1.6-2.3) mg/dL Iron 20 L (49-181) ug/dL % Saturation 7.4 L (20-50) % 03/24/17 03/24/17 Range/Units 07:10 12:30 WBC (3.8-10.6) k/uL RBC (4.30-5.90) m/uL Hgb (13.0-17.5) gm/dL Hct (39.0-53.0) % Neutrophils # (1.3-7.7) k/uL Lymphocytes # (1.0-4.8) k/uL Chloride (98-107) mmol/L Carbon Dioxide (22-30) mmol/L BUN (9-20) mg/dL Creatinine (0.66-1.25) mg/dL POC Glucose (mg/dL) 117 H 216 H (75-99) mg/dL Hemoglobin A1c (4.2-6.1) % Phosphorus (2.5-4.5) mg/dL Magnesium (1.6-2.3) mg/dL Iron (49-181) ug/dL % Saturation (20-50) % Microbiology - Last 24 Hours (Table) 03/23/17 04:15 Urine Culture - Final Urine,Voided 03/23/17 03:04 Blood Culture Gram Stain - Preliminary Blood Blood Culture - Preliminary Group D Enterococcus 03/23/17 03:04 Blood Culture - Preliminary Blood No Growth after 24 hours
[2017-03-24] MEDS ORDERED: GENTAMICIN 130 MG in SODIUM CHLORIDE 0.9% 100 ML IVPB SCH ×4 (14:00)
[2017-03-24] MEDS: AMPICILLIN-SULBACTAM 3 GM in SODIUM CHLORIDE 0.9% 100 ML IVPB SCH ×2 (15:54→23:17)
[2017-03-24] MEDS: SODIUM CHLORIDE 0.9% 1,000 ML IV SCH (15:54)
[2017-03-24 16:42] LABS: Glucose,Whole Blood 203 mg/dL (75-99)
[2017-03-24 20:59] LABS: Glucose,Whole Blood 171 mg/dL (75-99)
[2017-03-24] MEDS: LATANOPROST 0.005% OPHTH DROPS 2.5 ML BTL BOTH EYES SCH (21:59)
[2017-03-24] MEDS: RIVAROXABAN 10 MG TAB PO SCH (22:00)
[2017-03-24] MEDS: MAGNESIUM OXIDE 400 MG TAB PO SCH (22:00)
[2017-03-25] MEDS: AMPICILLIN-SULBACTAM 3 GM in SODIUM CHLORIDE 0.9% 100 ML IVPB SCH ×4 (05:21→23:23)
[2017-03-25 06:52] LABS: Glucose,Whole Blood 142 mg/dL (75-99)
[2017-03-25 07:45] LABS: Basophils % (A) 0 %; CHCM 33.5; Eosinophils # (A) 0.1 k/uL (0-0.7); Eosinophils % (A) 2 %; HCT 36.9 % (39.0-53.0); HDW 2.56; HGB 12.3 gm/dL (13.0-17.5); Luc # (Auto) 0.32; Luc % (Auto) 4; Lymphocytes % (A) 13 %; MCH 31.1 pg (25.0-35.0); MCHC 33.4 g/dL (31.0-37.0); Mean Platelet Volume 6.8; Monocytes # (A) 0.6 k/uL (0-1.0); Monocytes % (A) 8 %; Neutrophils # (A) 5.8 k/uL (1.3-7.7); Neutrophils % (A) 74 %; RBC 3.97 m/uL (4.30-5.90); RDW 12.9 % (11.5-15.5); WBC 7.9 k/uL (3.8-10.6); WBC (Perox) 8.42
[2017-03-25] MEDS: METOPROLOL SUCCINATE (ER) 100 MG TAB.ER.24H PO SCH (07:48)
[2017-03-25] MEDS: MAGNESIUM OXIDE 400 MG TAB PO SCH (07:48)
[2017-03-25] MEDS: INSULIN LISPRO (humaLOG) 300 UNIT/3 ML VIAL SQ SCH ×5 (07:48→20:52)
[2017-03-25 08:16] LABS: Anion Gap 8 mmol/L; Blood Urea Nitrogen 17 mg/dL (9-20); Calcium 8.7 mg/dL (8.4-10.2); Carbon Dioxide 25 mmol/L (22-30); Chloride 107 mmol/L (98-107); Glucose 145 mg/dL (74-99); Magnesium 1.3 mg/dL (1.6-2.3); Non-African American GFR(MDRD) >60 (>60 ml/min/1.73 sqM); Phosphorous 2.6 mg/dL (2.5-4.5); Potassium 3.9 mmol/L (3.5-5.1); Sodium 140 mmol/L (137-145)
[2017-03-25] MEDS: FERROUS SULFATE 325 MG TAB PO SCH (12:14)
[2017-03-25] MEDS: GENTAMICIN 160 MG in SODIUM CHLORIDE 0.9% 100 ML IVPB SCH (12:14)
[2017-03-25 12:34] LABS: Glucose,Whole Blood 315 mg/dL (75-99)
[2017-03-25] MEDS: SODIUM CHLORIDE 0.9% 1,000 ML IV SCH (13:09)
--- NOTE | 2017-03-25 13:41 | P.PN ---
Subjective Principal diagnosis: Sepsis, urinary tract infection, obstructive uropathy, renal stone, diabetes, acute on chronic kidney failure, iron deficiency anemia, hypomagnesemia. This 86 year old male presented with generalized weakness and with workup was determined to have sepsis with a urinary source. Growing Group D Enterococcus in blood cultures. Patient seen and examined this afternoon. Patient states he is feeling better. He states he did feel a little bit disoriented yesterday and is feeling better today. Patient is much more awake and alert and appropriate. QUESTIONS answered regarding patient's current stent, infection. Spoke with granddaughter on the unit as well regarding her questions and concerns. Patient states that his right hip pain that he had been having intermittently is improved. Denies other pain at this time. No dyspnea. Still generally weak but is feeling up to getting up in chair. States he had noted a decrease in his urine output in the day prior to admission which he states seems to be improved today. Patient is doing much better no Herring catheter at this point his urinary stent is working well was seen Dr. Anderson urology and hopefully prepare for home tomorrow on oral antibiotic stent to be left in for 5 more days patient will have it removed as an outpatient while removing the stone. Objective - Vital Signs Vital signs: Vital Signs Temp 97.6 F 03/25/17 07:00 Pulse 85 03/25/17 07:00 Resp 19 03/25/17 07:00 BP 149/83 03/25/17 07:00 Pulse Ox 94 L 03/25/17 08:02 Intake & Output 03/24/17 03/25/17 03/25/17 18:59 06:59 18:59 Intake Total 800 Output Total 1800 Balance -1000 Intake: Oral 800 Output: Urine 1800 Other: Voiding Method Urinal Urinal Urinal # Voids 4 0 1 # Bowel Movements 1 - Constitutional General appearance: Present: cooperative, disheveled, no acute distress. Absent : average body habitus, mild distress, morbidly obese, obese, severe distress, thin - EENT Eyes: Present: abnormal pupil, normal appearance. Absent: anicteric sclerae, disc margins sharp, edentulous, EOMI, PERRLA, fundus normal, photophobia, dentition normal, poor dentition, ptosis, scleral icterus ENT: Present: normal oropharynx. Absent: hard of hearing, hearing grossly normal, NA/AT, other, pharyngeal erythema, thrush, tonsillar exudates, tonsillar swelling Ears: bilateral: normal - Neck Neck: Present: normal ROM. Absent: lymphadenopathy, other, rigidity, stridor, thyromegaly Carotids: bilateral: upstroke normal Thyroid: bilateral: normal size - Respiratory Respiratory: bilateral: CTA, diminished - Cardiovascular Rhythm: regular Heart sounds: normal: S1, S2 Abnormal Heart Sounds: Present: systolic murmur, S3 Gallop. Absent: diastolic murmur, rub, S4 Gallop, click, other - Gastrointestinal General gastrointestinal: Present: normal bowel sounds, organomegaly, soft. Absent: absent bowel sounds, decreased bowel sounds, distended, hepatomegaly, hyperactive bowel sounds, rigid, scaphoid, splenomegaly, tenderness, umbilical hernia, ventral hernia - Integumentary Integumentary: Present: cellulitis, normal, pale. Absent: calor, cyanotic, decreased turgor, flushed, jaundiced, normal turgor, rash, ulcer - Neurologic Neurologic: Present: CNII-XII intact - Musculoskeletal Musculoskeletal: Present: gait normal, generalized weakness, strength equal bilaterally. Absent: right sided weakness, left sided weakness - Psychiatric Psychiatric: Present: A&O x's 3, appropriate affect - Labs CBC & Chem 7: 03/25/17 07:30 03/25/17 07:30 Labs: Abnormal Lab Results - Last 24 Hours (Table) 03/24/17 03/24/17 03/25/17 Range/Units 16:39 20:48 06:49 RBC (4.30-5.90) m/uL Hgb (13.0-17.5) gm/dL Hct (39.0-53.0) % Glucose (74-99) mg/dL POC Glucose (mg/dL) 203 H 171 H 142 H (75-99) mg/dL Magnesium (1.6-2.3) mg/dL 03/25/17 03/25/17 03/25/17 Range/Units 07:30 07:30 12:32 RBC 3.97 L (4.30-5.90) m/uL Hgb 12.3 L (13.0-17.5) gm/dL Hct 36.9 L (39.0-53.0) % Glucose 145 H (74-99) mg/dL POC Glucose (mg/dL) 315 H (75-99) mg/dL Magnesium 1.3 L (1.6-2.3) mg/dL Microbiology - Last 24 Hours (Table) 03/23/17 03:04 Blood Culture Gram Stain - Final Blood Blood Culture - Final Enterococcus faecalis 03/23/17 03:04 Blood Culture - Final Blood 03/23/17 04:15 Urine Culture - Final Urine,Voided Assessment and Plan Plan: 1 sepsis and urinary tract infection: Remain on antibiotics with Unasyn and gentamicin culture came back positive for group D enterococcus. Patient will be on oral antibiotic for total of 2 weeks. 2 obstructive uropathy: Post stent placement and stone will be removed hopefully when his stent removed in 5 days. 3 acute on chronic kidney failure: Much worsening with dehydration and obstruction continue hydration for now repeat BUN/creatinine by tomorrow again. 4 hypertension: Well controlled on metoprolol XL 100 mg daily and lisinopril 2.5 g a day. 5 diabetes: Continue patient on metformin 500 mg with supper 1000 g in the morning still on Glucotrol 10 mg daily. 6 Hypomagnesemia: On replacement therapy. 7 iron deficiency anemia: Continue iron supplement. 8 anticoagulation: Patient was on Xarelto 10 mg daily we'll continue medication. 9 GI prophylaxis: Patient be on Pepcid 20 mg daily. Discharge instruction: Patient hopefully will be discharged home tomorrow.
[2017-03-25 17:02] LABS: Glucose,Whole Blood 226 mg/dL (75-99)
--- NOTE | 2017-03-25 19:48 | P.PN ---
Subjective The patient is stable hemodynamically. He is growing enterococcus. He'll be placed on oral antibiotics and discharged home in the near future. He should stay on antibiotics until he sees me in the office. I would like to see him late next week I'll arrange for an outpatient surgical procedure remove the stone and the stent Objective - Vital Signs Vital signs: Vital Signs Temp 98.8 F 03/25/17 15:00 Pulse 90 03/25/17 15:00 Resp 18 03/25/17 15:00 BP 144/73 03/25/17 15:00 Pulse Ox 98 03/25/17 15:00 Intake & Output 03/25/17 03/25/17 03/26/17 06:59 18:59 06:59 Intake Total 800 Output Total 1800 Balance -1000 Intake: Oral 800 Output: Urine 1800 Other: Voiding Method Urinal Toilet Urinal # Voids 0 2 # Bowel Movements 1 - Labs CBC & Chem 7: 03/25/17 07:30 03/25/17 07:30 Labs: Abnormal Lab Results - Last 24 Hours (Table) 03/24/17 03/25/17 03/25/17 Range/Units 20:48 06:49 07:30 RBC (4.30-5.90) m/uL Hgb (13.0-17.5) gm/dL Hct (39.0-53.0) % Glucose 145 H (74-99) mg/dL POC Glucose (mg/dL) 171 H 142 H (75-99) mg/dL Magnesium 1.3 L (1.6-2.3) mg/dL 03/25/17 03/25/17 03/25/17 Range/Units 07:30 12:32 17:01 RBC 3.97 L (4.30-5.90) m/uL Hgb 12.3 L (13.0-17.5) gm/dL Hct 36.9 L (39.0-53.0) % Glucose (74-99) mg/dL POC Glucose (mg/dL) 315 H 226 H (75-99) mg/dL Magnesium (1.6-2.3) mg/dL Microbiology - Last 24 Hours (Table) 03/23/17 03:04 Blood Culture Gram Stain - Final Blood Blood Culture - Final Enterococcus faecalis 03/23/17 03:04 Blood Culture - Final Blood
[2017-03-25 20:49] LABS: Glucose,Whole Blood 232 mg/dL (75-99)
[2017-03-25] MEDS: RIVAROXABAN 10 MG TAB PO SCH (20:52)
[2017-03-25] MEDS: LATANOPROST 0.005% OPHTH DROPS 2.5 ML BTL BOTH EYES SCH (20:52)
[2017-03-26] MEDS: AMPICILLIN-SULBACTAM 3 GM in SODIUM CHLORIDE 0.9% 100 ML IVPB SCH ×3 (05:06→18:10)
[2017-03-26] MEDS: GENTAMICIN 160 MG in SODIUM CHLORIDE 0.9% 100 ML IVPB SCH (06:30)
[2017-03-26 07:36] LABS: Glucose,Whole Blood 172 mg/dL (75-99)
[2017-03-26] MEDS: INSULIN LISPRO (humaLOG) 300 UNIT/3 ML VIAL SQ SCH ×4 (08:07→22:21)
[2017-03-26] MEDS: METOPROLOL SUCCINATE (ER) 100 MG TAB.ER.24H PO SCH (08:08)
[2017-03-26 09:43] LABS: ALT 36 U/L (21-72); AST 31 U/L (17-59); Alkaline Phosphatase 84 U/L (38-126); Anion Gap 9 mmol/L; Blood Urea Nitrogen 15 mg/dL (9-20); Carbon Dioxide 25 mmol/L (22-30); Chloride 107 mmol/L (98-107); Glucose 195 mg/dL (74-99); Non-African American GFR(MDRD) >60 (>60 ml/min/1.73 sqM); Potassium 4.3 mmol/L (3.5-5.1); Sodium 141 mmol/L (137-145); Total Bilirubin 0.7 mg/dL (0.2-1.3); Total Protein 6.1 g/dL (6.3-8.2)
[2017-03-26 09:56] LABS: Basophils % (A) 0 %; CH 31.6; CHCM 33.8; Eosinophils # (A) 0.2 k/uL (0-0.7); Eosinophils % (A) 2 %; HCT 39.7 % (39.0-53.0); HDW 2.68; HGB 13.2 gm/dL (13.0-17.5); Luc % (Auto) 3; Lymphocytes # (A) 1.5 k/uL (1.0-4.8); Lymphocytes % (A) 17 %; MCH 31.3 pg (25.0-35.0); MCHC 33.3 g/dL (31.0-37.0); MCV 93.8 fL (80.0-100.0); Mean Platelet Volume 7.2; Monocytes # (A) 0.6 k/uL (0-1.0); Monocytes % (A) 6 %; Neutrophils # (A) 6.6 k/uL (1.3-7.7); Neutrophils % (A) 71 %; RBC 4.23 m/uL (4.30-5.90); RDW 13.2 % (11.5-15.5); WBC 9.3 k/uL (3.8-10.6); WBC (Perox) 9.53
[2017-03-26 09:59] LABS: Calcium 9.1 mg/dL (8.4-10.2)
[2017-03-26] MEDS: SODIUM CHLORIDE 0.9% 1,000 ML IV SCH (11:29)
[2017-03-26 11:57] LABS: Glucose,Whole Blood 241 mg/dL (75-99)
[2017-03-26] MEDS: FERROUS SULFATE 325 MG TAB PO SCH (12:55)
--- NOTE | 2017-03-26 15:36 | P.CONS ---
History of Present Illness - Reason for Consult Consult date: 03/26/17 Bacteremia, UTI - History of Present Illness This is an 86-year-old male who developed vomiting on along with fever and chills, tiredness and sleepiness. He initially presented to [place] [facility] and underwent a CAT scan that did reveal a right hydronephrosis with distal right renal lithiasis. Stone is 7 mm in diameter and the hydronephrosis is read as moderate with mild hydroureter. An additional punctate nonobstructing stone was seen in the right kidney. No dilated loops of bowel were seen. Sigmoid diverticulosis was noted. Urinary bladder was noted to be normal. Patient also had a CAT scan of the chest which showed no consolidation or effusion, some mild multifocal parenchymal scarring noted. Coronary and aortic calcified atherosclerosis. Patient was then transferred to [facility]. Patient was continued on Zosyn and Levaquin. He was seen in consultation by Dr. Anderson from urology and is status post cystoscopy and placement of a double-J catheter on March 23. Dr. Anderson has recommended oral antibiotics and follow-up with him on Saturday. Patient is being prepared for discharge home today. Initial blood culture is positive for enterococcus and consult was placed for bacteremia. Repeat blood culture is showing no growth at 24 hours. Review of Systems All systems: negative Constitutional: Reports chills, Reports daytime sleepiness, Reports fever, Reports malaise, Reports weakness Eyes: denies blurred vision, denies pain Ears, nose, mouth and throat: Denies headache, Denies sore throat Cardiovascular: Denies chest pain, Denies shortness of breath Respiratory: Denies cough Gastrointestinal: Reports vomiting, Denies abdominal pain, Denies diarrhea, Denies nausea Musculoskeletal: Denies myalgias Integumentary: Denies pruritus, Denies rash Neurological: Denies numbness, Denies weakness Psychiatric: Denies anxiety, Denies depression Endocrine: Denies fatigue, Denies weight change Past Medical History Past Medical History: Diabetes Mellitus, Hypertension, Osteoarthritis (OA) ( hands) Additional Past Medical History / Comment(s): 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 Patient reports history of arrhythmia for which he is on Xarelto. History of Any Multi-Drug Resistant Organisms: None Reported Past Surgical History: Orthopedic Surgery Additional Past Surgical History / Comment(s): ANKLE SURG WITH PINS. Past Anesthesia/Blood Transfusion Reactions: No Reported Reaction Past Psychological History: No Psychological Hx Reported Smoking Status: Current every day smoker Past Alcohol Use History: Occasional Additional Past Alcohol Use History / Comment(s): CURRENTLY SMOKES A PIPE., STARTED SMOKING AROUND AGE 19. Past Drug Use History: None Reported - Past Family History Father Family Medical History: No Reported History Mother Family Medical History: No Reported History Medications and Allergies Home Medications Medication Instructions Recorded Confirmed Type Lisinopril [Zestril] 2.5 mg PO QAM 05/25/15 03/23/17 History glipiZIDE [Glucotrol] 10 mg PO DAILY 10/03/16 03/23/17 History metFORMIN HCL [Glucophage] 500 mg PO W/SUPPER 10/03/16 03/23/17 History Metoprolol Succinate (ER) [Toprol 100 mg PO DAILY 03/22/17 03/23/17 History XL] Rivaroxaban [Xarelto] 10 mg PO HS 03/22/17 03/23/17 History metFORMIN HCL [Metformin HCl] 1,000 mg PO QAM 03/22/17 03/23/17 History Travoprost [Travatan Z 0.004%] 1 drop BOTH EYES 03/24/17 03/24/17 History Allergies Allergy/AdvReac Type Severity Reaction Status Date / Time No Known Allergies Allergy Verified 03/22/17 23:44 Physical Exam Vitals: Vital Signs Temp Pulse Resp BP BP Pulse Ox 03/26/17 15:00 97.5 F L 85 22 141/85 97 03/26/17 07:00 97.5 F L 96 22 156/83 96 03/25/17 23:00 97.0 F L 71 18 137/76 97 Intake and Output 03/26/17 03/26/17 03/26/17 06:59 14:59 22:59 Intake Total 200 630 Output Total 1650 350 Balance -1450 280 Intake: Oral 200 630 Output: Urine 1650 350 Other: # Voids 1 # Bowel Movements 0 Gen: This is an 86-year-old male. He is sitting up in bed and appears to be in no acute distress. HEENT: Head is atraumatic, normocephalic. Pupils equal, round. Sclerae is anicteric. NECK: Supple. No JVD. No lymphadenopathy. No thyromegaly. LUNGS: Clear to auscultation. No wheezes or rhonchi. No intercostal retractions. HEART: Regular rate and rhythm. Systolic murmur. ABDOMEN: Soft. Bowel sounds are present. No masses. No tenderness. EXTREMITIES: No pedal edema. No calf tenderness. NEUROLOGICAL: Patient is awake, alert and oriented x3. Cranial nerves 2 through 12 are grossly intact. Results Results: Laboratory Results WBC 9.3 k/uL (3.8-10.6) 03/26/17 07:51 RBC 4.23 m/uL (4.30-5.90) L 03/26/17 07:51 Hgb 13.2 gm/dL (13.0-17.5) 03/26/17 07:51 Hct 39.7 % (39.0-53.0) 03/26/17 07:51 MCV 93.8 fL (80.0-100.0) 03/26/17 07:51 MCH 31.3 pg (25.0-35.0) 03/26/17 07:51 MCHC 33.3 g/dL (31.0-37.0) 03/26/17 07:51 RDW 13.2 % (11.5-15.5) 03/26/17 07:51 Plt Count 326 k/uL (150-450) 03/26/17 07:51 Neutrophils % 71 % 03/26/17 07:51 Lymphocytes % 17 % 03/26/17 07:51 Monocytes % 6 % 03/26/17 07:51 Eosinophils % 2 % 03/26/17 07:51 Basophils % 0 % 03/26/17 07:51 Neutrophils # 6.6 k/uL (1.3-7.7) 03/26/17 07:51 Lymphocytes # 1.5 k/uL (1.0-4.8) 03/26/17 07:51 Monocytes # 0.6 k/uL (0-1.0) 03/26/17 07:51 Eosinophils # 0.2 k/uL (0-0.7) 03/26/17 07:51 Basophils # 0.0 k/uL (0-0.2) 03/26/17 07:51 Sodium 141 mmol/L (137-145) 03/26/17 07:51 Potassium 4.3 mmol/L (3.5-5.1) 03/26/17 07:51 Chloride 107 mmol/L (98-107) 03/26/17 07:51 Carbon Dioxide 25 mmol/L (22-30) 03/26/17 07:51 Anion Gap 9 mmol/L 03/26/17 07:51 BUN 15 mg/dL (9-20) 03/26/17 07:51 Creatinine 0.73 mg/dL (0.66-1.25) 03/26/17 07:51 Est GFR (MDRD) Af Amer >60 (>60 ml/min/1.73 sqM) 03/26/17 07:51 Est GFR (MDRD) Non-Af >60 (>60 ml/min/1.73 sqM) 03/26/17 07:51 Glucose 195 mg/dL (74-99) H 03/26/17 07:51 POC Glucose (mg/dL) 241 mg/dL (75-99) H 03/26/17 11:50 POC Glu Supervisor Liquid Yeast Arminda Madrigal 03/26/17 11:[address] Glu mg/dL 151 mg/dL 03/23/17 00:39 Hemoglobin A1c 6.9 % (4.2-6.1) H 03/23/17 00:39 Plasma Lactic Acid Jay 1.5 mmol/L (0.7-2.0) 03/23/17 00:39 Calcium 9.1 mg/dL (8.4-10.2) 03/26/17 07:51 Phosphorus 2.6 mg/dL (2.5-4.5) 03/25/17 07:30 Magnesium 1.3 mg/dL (1.6-2.3) L 03/25/17 07:30 Iron 20 ug/dL (49-181) L 03/23/17 13:47 TIBC 270 ug/dL (261-462) 03/23/17 13:47 % Saturation 7.4 % (20-50) L 03/23/17 13:47 Ferritin 150 ng/mL (18-464) 03/23/17 13:47 Total Bilirubin 0.7 mg/dL (0.2-1.3) 03/26/17 07:51 AST 31 U/L (17-59) 03/26/17 07:51 ALT 36 U/L (21-72) 03/26/17 07:51 Alkaline Phosphatase 84 U/L (38-126) 03/26/17 07:51 Troponin I <0.012 ng/mL (0.000-0.034) 03/23/17 00:39 Total Protein 6.1 g/dL (6.3-8.2) L 03/26/17 07:51 Albumin 3.4 g/dL (3.5-5.0) L 03/26/17 07:51 Urine Color Yellow 03/23/17 04:15 Urine Appearance Clear (Clear) 03/23/17 04:15 Urine pH 5.0 (5.0-8.0) 03/23/17 04:15 Ur Specific [place] 1.018 (1.001-1.035) 03/23/17 04:15 Urine Protein Negative (Negative) 03/23/17 04:15 Urine Glucose (UA) 3+ (Negative) H 03/23/17 04:15 Urine Ketones Trace (Negative) H 03/23/17 04:15 Urine Blood Negative (Negative) 03/23/17 04:15 Urine Nitrite Negative (Negative) 03/23/17 04:15 Urine Bilirubin Negative (Negative) 03/23/17 04:15 Urine Urobilinogen <2.0 mg/dL (<2.0) 03/23/17 04:15 Ur Leukocyte Esterase Small (Negative) H 03/23/17 04:15 Urine RBC 2 /hpf (0-5) 03/23/17 04:15 Urine WBC 10 /hpf (0-5) H 03/23/17 04:15 Urine Mucus Rare /hpf (None) H 03/23/17 04:15 CBC & Chem 7: 03/26/17 07:51 03/26/17 07:51 Labs: Abnormal Lab Results - Last 24 Hours (Table) 03/25/17 03/25/17 03/26/17 Range/Units 17:01 20:39 07:22 RBC (4.30-5.90) m/uL Glucose (74-99) mg/dL POC Glucose (mg/dL) 226 H 232 H 172 H (75-99) mg/dL Total Protein (6.3-8.2) g/dL Albumin (3.5-5.0) g/dL 03/26/17 03/26/17 03/26/17 Range/Units 07:51 07:51 11:50 RBC 4.23 L (4.30-5.90) m/uL Glucose 195 H (74-99) mg/dL POC Glucose (mg/dL) 241 H (75-99) mg/dL Total Protein 6.1 L (6.3-8.2) g/dL Albumin 3.4 L (3.5-5.0) g/dL Microbiology - Last 24 Hours (Table) 03/25/17 07:30 Blood Culture - Preliminary Blood No Growth after 24 hours Assessment and Plan Plan: This is an 86-year-old male who presented to the hospital with sepsis and urinary tract infection with hydronephrosis secondary to kidney stone with acute kidney injury. Patient was also found to have enterococcus bacteremia and septicemia. PICC line will be arranged and patient will be discharged home on Unasyn for another 12 days. Case management updated. Further recommendations as patient progresses. The above dictated assessment and findings were discussed with Dr. Rehman. The impression and plan of care have been directed as dictated. Barb Goetz nurse practitioner acting as scribe for Dr. Rehman.
[2017-03-26 16:56] LABS: Glucose,Whole Blood 209 mg/dL (75-99)
[2017-03-26 20:43] LABS: Glucose,Whole Blood 254 mg/dL (75-99)
[2017-03-26] MEDS: LATANOPROST 0.005% OPHTH DROPS 2.5 ML BTL BOTH EYES SCH (22:21)
--- NOTE | 2017-03-26 23:39 | P.CON ---
Consult Note - . Consult date: 03/26/17 Assessment/Plan:: This is an 86-year-old male who developed vomiting on along with fever and chills, tiredness and sleepiness. He initially presented to [place] [facility] and underwent a CAT scan that did reveal a right hydronephrosis with distal right renal lithiasis. Stone is 7 mm in diameter and the hydronephrosis is read as moderate with mild hydroureter. An additional punctate nonobstructing stone was seen in the right kidney. No dilated loops of bowel were seen. Sigmoid diverticulosis was noted. Urinary bladder was noted to be normal. Patient also had a CAT scan of the chest which showed no consolidation or effusion, some mild multifocal parenchymal scarring noted. Coronary and aortic calcified atherosclerosis. Patient was then transferred to [facility]. Patient was continued on Zosyn and Levaquin. He was seen in consultation by Dr. Anderson from urology and is status post cystoscopy and placement of a double-J catheter on March 23. Dr. Anderson has recommended oral antibiotics and follow-up with him on Saturday. Patient is being prepared for discharge home today. Initial blood culture is positive for enterococcus and consult was placed for bacteremia. Repeat blood culture is showing no growth at 24 hours. Please see the consult note as dictated by nurse practitioner Mrs. Barb Goetz. This pleasant gentleman has a history of prior urinary infection. Now presents with evidence of sepsis from an outside hospital. Positive blood cultures for enterococcus were noted at that facility as well as our laboratory. The patient 's been taking the operating room and has had a stent placed to relieve the obstruction. He is feeling somewhat better. Exam reveals this pleasant gentleman who is no longer in distress. Follow blood cultures are negative so far. It is in the patient has evidence of enterococcus bacteremia, which routinely would be treated with beta lactam therapy, which should be intravenous given his bacteremia and high risk for secondary infections. Although susceptible to quinolones there is routinely poor clinical outcome with enterococcal bacteremia treated with this class. Constantly of blood cultures negative in the morning, we'll hold Xarelto also, a PICC line replaced and will plan to finish up the 2 weeks of intravenous antibiotic therapy with Unasyn. Inquiring as to his coverage and if antibiotic can be given at home. Discharge planning is in process. At this time I agree with evaluation, assessment and plan as dictated by nurse practitioner Mrs. Brab Goetz.
[2017-03-27] MEDS: AMPICILLIN-SULBACTAM 3 GM in SODIUM CHLORIDE 0.9% 100 ML IVPB SCH ×3 (00:32→11:17)
[2017-03-27 00:47] VITALS: RESP 18
[2017-03-27] MEDS: SODIUM CHLORIDE 0.9% 1,000 ML IV SCH (04:06)
[2017-03-27 07:11] LABS: Glucose,Whole Blood 156 mg/dL (75-99)
[2017-03-27 07:25] VITALS: BP 148/71; PULSE 92; TEMP 97.2
[2017-03-27] MEDS: METOPROLOL SUCCINATE (ER) 100 MG TAB.ER.24H PO SCH (08:19)
[2017-03-27] MEDS: INSULIN LISPRO (humaLOG) 300 UNIT/3 ML VIAL SQ SCH ×2 (08:19→13:22)
[2017-03-27] MEDS: LISINOPRIL 2.5 MG TAB PO SCH (08:26)
[2017-03-27 08:49] LABS: INR 1.2 (<1.1); Prothrombin Time 12.1 sec (9.0-12.0)
[2017-03-27 09:04] LABS: Anion Gap 10 mmol/L; Blood Urea Nitrogen 14 mg/dL (9-20); Calcium 9.2 mg/dL (8.4-10.2); Carbon Dioxide 29 mmol/L (22-30); Chloride 102 mmol/L (98-107); Glucose 178 mg/dL (74-99); Non-African American GFR(MDRD) >60 (>60 ml/min/1.73 sqM); Potassium 3.9 mmol/L (3.5-5.1); Sodium 141 mmol/L (137-145)
[2017-03-27] MEDS ORDERED: LIDOCAINE 2% (PF) 20 MG/ML 10ML SQ ONE (10:58)
--- NOTE | 2017-03-27 12:15 | CDI ---
In responding to this query, please exercise your independent professional judgment. The [facility] Coding Staff and Clinical Documentation Specialists appreciate your assistance in clarifying documentation, maintaining compliance with coding guidelines, accurately documenting patients condition and capturing severity of illness. The fact that a question is asked does not imply that any particular answer is desired or expected. Communication forms are a method of clarifying documentation and are not made part of the Legal Health Record. Thank you in advance for your clarification. Last Revision, August 2015 Jean Sorto [address] [place] [address] Documentation Clarification Form Date: 03/27/2017 11:52:00 AM From: Geni Kaufman Admit Date: 03/23/2017 2:40:00 AM Patient Name: Kj Ibarra Visit Number: [id number] Discharge Date: Dr. Rogers King/Barb Goetz [employer] History/Risk Factors: Chronic kidney failure, Iron deficiency anemia, Diabetes mellitus, Hypertension, Current everyday smoker Admission: BUN 39, CR 1.80, GFR 46 03/23/17 BUN 35, CR 1.60, GFR 41 Patients Baseline: BUN/CR/GFR: Not noted Clinical Indicators: Complains of generalized weakness. Multiple episodes of nausea and vomiting. Vital signs: 127/65 116 20 99.1 Treatment: IV Fluids Monitor labs In order to capture the severity of condition, please clarify if the condition signifies: CKD Stage 1 (GFR > 90) CKD Stage 2 (GFR 60-89) CKD Stage 3 (GFR 30-59) CKD Stage 4 (GFR 15-29) CKD Stage 5 (GFR <15) Unable to determine Other condition, please specify Please document in your progress notes and discharge summary in order to capture severity of illness and risk of mortality. Include clinical findings that support your diagnosis. FYI: Press F11 to launch patient chart. Place X here if this finding has no clinical significance, is not applicable or if you are not able to provide any additional documentation. ARPAND
[2017-03-27 12:28] LABS: Glucose,Whole Blood 279 mg/dL (75-99)
[2017-03-27] MEDS: FERROUS SULFATE 325 MG TAB PO SCH (13:22)
--- NOTE | 2017-03-27 13:32 | IR ---
EXAMINATION TYPE: IR cvc insert >=5 years DATE OF EXAM: 03/27/2017 COMPARISON: NONE CLINICAL HISTORY: Infection Needs long-term intravenous access for antibiotics. PROCEDURE: After informed consent, the skin overlying the left brachial vein was localized with ultrasound and n oted to be compressible and patent. An ultrasound image was obtained and submitted on the patient's chart. The overlying skin was prepped and draped and Lidocaine was used for local anesthesia. A ski n abner was made with a scalpel. Access was gained to the vein under ultrasound guidance with a 21 ga uge needle and a 0.018 inch wire was advanced. Access site was dilated with Peel-Away sheath and cat heter tailored to the appropriate length and advanced such that the distal tip is at the cavoatrial j unction. Spot image was obtained verifying placement. Catheter was fixed to the skin with suture an d a sterile dressing was placed following hemostasis. Catheter was aspirated and flushed with saline . Patient was discharged in stable condition without complication.Maximal barrier technique is utili zed. Ultrasound image is documented on the chart. Ultrasound used with sterile technique. Fluoro time and fluoroscopic images submitted to document procedure: 146 intraoperative C-arm images, 0.5 minutes fluoroscopy time IMPRESSION: STATUS POST ULTRASOUND AND FLUOROSCOPIC GUIDED PICC LINE PLACEMENT, READY FOR USE. THIS PROCEDURE WAS PERFORMED BY THE UNDERSIGNED.
--- NOTE | 2017-03-27 14:42 | P.PN ---
Subjective This 86 year old male presented with generalized weakness and with workup was determined to have sepsis with a urinary source. Growing Group D Enterococcus in blood cultures. Patient seen and examined this afternoon. Patient states he is feeling better. He states he did feel a little bit disoriented yesterday and is feeling better today. Patient is much more awake and alert and appropriate. QUESTIONS answered regarding patient's current stent, infection. Spoke with granddaughter on the unit as well regarding her questions and concerns. Patient states that his right hip pain that he had been having intermittently is improved. Denies other pain at this time. No dyspnea. Still generally weak but is feeling up to getting up in chair. States he had noted a decrease in his urine output in the day prior to admission which he states seems to be improved today. Patient is doing much better no Herring catheter at this point his urinary stent is working well was seen Dr. Anderson urology and hopefully prepare for home tomorrow on oral antibiotic stent to be left in for 5 more days patient will have it removed as an outpatient while removing the stone. 03/26: Patient is being prepared for discharge home today and blood cultures positive for Enterococcus faecalis. Consult placed with Dr. Rehman and PICC line has been ordered with plan for IV antibiotics for enterococcus bacteremia and UTI. Patient denies any new complaints area he has been afebrile. Xarelto on hold. Objective - Vital Signs Vital signs: Vital Signs Temp 97.2 F L 03/27/17 07:00 Pulse 92 03/27/17 07:00 Resp 18 03/27/17 07:00 BP 148/71 03/27/17 07:00 Pulse Ox 97 03/27/17 07:00 Intake & Output 03/26/17 03/27/17 03/27/17 18:59 06:59 18:59 Intake Total 730 350 100 Output Total 700 1400 150 Balance 30 -1050 -50 Weight 95.254 kg Intake: Intake, IV Titration 100 100 Amount Ampicillin-Sulbactam 3 gm 100 100 In Sodium Chloride 0.9% 100 ml @ 100 mls/hr IVPB Q6HR [facility] Rx#:[id number] Oral 630 350 Output: Urine 700 1400 150 Other: Voiding Method Toilet Urinal # Voids 1 3 # Bowel Movements 0 0 - Exam General appearance: Present: cooperative, disheveled, no acute distress. Absent : average body habitus, mild distress, morbidly obese, obese, severe distress, thin - EENT Eyes: Present: abnormal pupil, normal appearance. Absent: anicteric sclerae, disc margins sharp, edentulous, EOMI, PERRLA, fundus normal, photophobia, dentition normal, poor dentition, ptosis, scleral icterus ENT: Present: normal oropharynx. Absent: hard of hearing, hearing grossly normal, NA/AT, other, pharyngeal erythema, thrush, tonsillar exudates, tonsillar swelling Ears: bilateral: normal - Neck Neck: Present: normal ROM. Absent: lymphadenopathy, other, rigidity, stridor, thyromegaly Carotids: bilateral: upstroke normal Thyroid: bilateral: normal size - Respiratory Respiratory: bilateral: CTA, diminished - Cardiovascular Rhythm: regular Heart sounds: normal: S1, S2 Abnormal Heart Sounds: Present: systolic murmur, S3 Gallop. Absent: diastolic murmur, rub, S4 Gallop, click, other - Gastrointestinal General gastrointestinal: Present: normal bowel sounds, organomegaly, soft. Absent: absent bowel sounds, decreased bowel sounds, distended, hepatomegaly, hyperactive bowel sounds, rigid, scaphoid, splenomegaly, tenderness, umbilical hernia, ventral hernia - Integumentary Integumentary: Present: cellulitis, normal, pale. Absent: calor, cyanotic, decreased turgor, flushed, jaundiced, normal turgor, rash, ulcer - Neurologic Neurologic: Present: CNII-XII intact - Musculoskeletal Musculoskeletal: Present: gait normal, generalized weakness, strength equal bilaterally. Absent: right sided weakness, left sided weakness - Psychiatric Psychiatric: Present: A&O x's 3, appropriate affect - Labs CBC & Chem 7: 03/26/17 07:51 03/27/17 08:32 Labs: Abnormal Lab Results - Last 24 Hours (Table) 03/26/17 03/26/17 03/27/17 Range/Units 16:53 20:35 07:04 PT (9.0-12.0) sec Glucose (74-99) mg/dL POC Glucose (mg/dL) 209 H 254 H 156 H (75-99) mg/dL 03/27/17 03/27/17 03/27/17 Range/Units 08:32 08:32 12:24 PT 12.1 H (9.0-12.0) sec Glucose 178 H (74-99) mg/dL POC Glucose (mg/dL) 279 H (75-99) mg/dL Microbiology - Last 24 Hours (Table) 03/25/17 07:30 Blood Culture - Preliminary Blood No Growth after 48 hours Assessment and Plan Plan: 1 sepsis with enterococcus bacteremia, septicemia, obstructive uropathy and urinary tract infection: Continue Unasyn. Consult with Dr. Rehman added. 2 obstructive uropathy: Post stent placement and stone will be removed hopefully when his stent removed. 3 acute kidney injury secondary to obstructive uropathy and chronic kidney disease stage II, resolved. 4 hypertension: Well controlled on metoprolol XL 100 mg daily and lisinopril 2.5 g a day. 5 diabetes mellitus type II with hemoglobin A1c of 6.9: Continue patient on metformin 500 mg with supper 1000 g in the morning still on Glucotrol 10 mg daily. 6 Hypomagnesemia: On replacement therapy. 7 iron deficiency anemia: Continue iron supplement. 8 suspected paroxysmal atrial fibrillation for which he is on anticoagulation: Patient was on Xarelto 10 mg daily. 9 GI prophylaxis: Patient be on Pepcid 20 mg daily. Discharge instruction: home Impression and plan of care have been directed as dictated by the signing physician. Barb Goetz nurse practitioner acting as scribe for signing physician.
--- NOTE | 2017-03-27 14:46 | P.DS ---
Providers Date of admission: 03/23/17 02:40 Expected date of discharge: 03/27/17 Attending physician: Hannah Elizabeth Consults: 03/23/17 08:42 Consult Physician Routine Consulting Provider: Russell Romano Consult Reason/Comments: stone Do you want consulting provider notified?: Yes 03/23/17 09:51 Consult Physician Routine Consulting Provider: Jovanni Anderson Consult Reason/Comments: right hydronephrosis Do you want consulting provider notified?: Already Contacted 03/26/17 11:59 Consult Physician Routine Consulting Provider: Rogers Rehman Consult Reason/Comments: UTI, bacteremia Do you want consulting provider notified?: Yes Primary care physician: [place] Course: This 86 year old male presented with generalized weakness and with workup was determined to have sepsis with a urinary source. G[employer] D Enterococcus in blood cultures. Patient seen and examined this afternoon. Patient states he is feeling better. He states he did feel a little bit disoriented yesterday and is feeling better today. Patient is much more awake and alert and appropriate. QUESTIONS answered regarding patient's current stent, infection. Spoke with granddaughter on the unit as well regarding her questions and concerns. Patient states that his right hip pain that he had been having intermittently is improved. Denies other pain at this time. No dyspnea. Still generally weak but is feeling up to getting up in chair. States he had noted a decrease in his urine output in the day prior to admission which he states seems to be improved today. Patient is doing much better no Herring catheter at this point his urinary stent is working well was seen Dr. Anderson urology and hopefully prepare for home tomorrow on oral antibiotic stent to be left in for 5 more days patient will have it removed as an outpatient while removing the stone. 03/26: Patient is being prepared for discharge home today and blood cultures positive for Enterococcus faecalis. Consult placed with Dr. Rehman and PICC line has been ordered with plan for IV antibiotics for enterococcus bacteremia and UTI. Patient denies any new complaints area he has been afebrile. Xarelto on hold. 03/27: PICC line has been placed. Jean homecare and infusion have been arranged. He will be continued on Unasyn for 14 more days. Patient will be discharged home today in stable condition. Xarelto will be resumed. Discharge diagnoses: 1 sepsis with enterococcus bacteremia, septicemia, obstructive uropathy and urinary tract infection 2 obstructive uropathy: Post stent placement and stone will be removed hopefully when his stent removed. 3 acute kidney injury secondary to obstructive uropathy and chronic kidney disease stage II, resolved. 4 hypertension 5 diabetes mellitus type II with hemoglobin A1c of 6.9 6 Hypomagnesemia 7 iron deficiency anemia 8 suspected paroxysmal atrial fibrillation for which he is on anticoagulation with Xarelto 10 mg daily as he states he has irregular heartbeat in the past. Discharge instruction: home Impression and plan of care have been directed as dictated by the signing physician. Barb Goetz nurse practitioner acting as scribe for signing physician. Patient Condition at Discharge: Good Plan - Discharge Summary New Discharge Prescriptions: New RX: Ampicillin-Sulbactam [Unasyn] 3 gm IVPB Q6HR #56 vial Continue RX: Lisinopril [Zestril] 2.5 mg PO QAM RX: glipiZIDE [Glucotrol] 10 mg PO DAILY RX: metFORMIN HCL [Glucophage] 500 mg PO W/SUPPER RX: Rivaroxaban [Xarelto] 10 mg PO HS RX: Metoprolol Succinate (ER) [Toprol XL] 100 mg PO DAILY RX: metFORMIN HCL [Metformin HCl] 1,000 mg PO QAM RX: Travoprost [Travatan Z 0.004%] 1 drop BOTH EYES HS Discontinued RX: Meloxicam 15 mg PO DAILY Discharge Medication List RX: Lisinopril [Zestril] 2.5 mg PO QAM 05/25/15 [History] RX: glipiZIDE [Glucotrol] 10 mg PO DAILY 10/03/16 [History] RX: metFORMIN HCL [Glucophage] 500 mg PO W/SUPPER 10/03/16 [History] RX: Metoprolol Succinate (ER) [Toprol XL] 100 mg PO DAILY 03/22/17 [History] RX: Rivaroxaban [Xarelto] 10 mg PO HS 03/22/17 [History] RX: metFORMIN HCL [Metformin HCl] 1,000 mg PO QAM 03/22/17 [History] RX: Travoprost [Travatan Z 0.004%] 1 drop BOTH EYES HS 03/24/17 [History] RX: Ampicillin-Sulbactam [Unasyn] 3 gm IVPB Q6HR #56 vial 03/26/17 [Rx] Follow up Appointment(s)/Referral(s): Hannah Elizabeth MD [Primary Care Provider] - 04/05/17 11:15 am Rogers Rehman MD [STAFF PHYSICIAN] - 04/09/17 11:00 am [facility], [NON-STAFF] - As Needed [facility], [REFERRING] - As Needed Jovanni Anderson MD [STAFF PHYSICIAN] - 03/29/17 Ambulatory/Diagnostic Orders: Basic Metabolic Panel [LAB.AMB] Location: Determined By Patient Complete Blood Count w/diff [LAB.AMB] Location: Determined By Patient Patient Instructions/Handouts: Sepsis (GEN) Activity/Diet/Wound Care/Special Instructions: Cardiac diabetic diet. PICC line instructions and card given to pt. Discharge Disposition: HOME WITH HOME HEALTH SERVICES
== END 2017-03-27 15:22 | disposition home health service (06) | DRG 872 ==
LOC: EC 23:31 → 4MS4W 03-23 02:40
PROVIDERS: ADMIT Family Medicine; ATTEND Family Medicine
PROC: 0T768DZ Dilation of Right Ureter with Intraluminal Device, Via Natural or Artificial Opening Endoscopic (ICD-10-PCS; 2017-03-23)
PROC: 02HV33Z Insertion of Infusion Device into Superior Vena Cava, Percutaneous Approach (ICD-10-PCS; principal; 2017-03-27 10:45)
PROC: B548ZZA Ultrasonography of Superior Vena Cava, Guidance (ICD-10-PCS; 2017-03-27 10:45)
DX: A41.81 Sepsis due to Enterococcus (principal); N17.9 Acute kidney failure, unspecified; E11.22 Type 2 diabetes mellitus with diabetic chronic kidney disease; I48.0 Paroxysmal atrial fibrillation; E86.0 Dehydration; E83.42 Hypomagnesemia; E11.319 Type 2 diabetes mellitus with unspecified diabetic retinopathy without macular edema; E83.39 Other disorders of phosphorus metabolism; N13.6 Pyonephrosis; I12.9 Hypertensive chronic kidney disease with stage 1 through stage 4 chronic kidney disease, or unspecified chronic kidney disease; F17.290 Nicotine dependence, other tobacco product, uncomplicated; D50.9 Iron deficiency anemia, unspecified; K57.30 Diverticulosis of large intestine without perforation or abscess without bleeding; M19.041 Primary osteoarthritis, right hand; M19.042 Primary osteoarthritis, left hand; N18.2 Chronic kidney disease, stage 2 (mild); I25.10 Atherosclerotic heart disease of native coronary artery without angina pectoris; I70.0 Atherosclerosis of aorta; H40.9 Unspecified glaucoma; Z79.01 Long term (current) use of anticoagulants; Z79.84 Long term (current) use of oral hypoglycemic drugs; Z79.1 Long term (current) use of non-steroidal anti-inflammatories (NSAID); Z79.899 Other long term (current) drug therapy
CPT/HCPCS: 36415; 36569; 76937; 77001; 80048; 80053; 81001; 82728; 83036; 83540; 83550; 83605; 83735; 84100; 84484; 85025; 85610; 87040; 87077; 87086; 87186; 93005; 94760; 96365; 99285

== ENCOUNTER → 2017-09-11 | Outpatient (CLI) | payer MEDICARE, BC ==
[2017-09-11 12:17] LABS: EKG EKG PERFORMED
[2017-09-11 13:16] LABS: Anion Gap 9 mmol/L; Carbon Dioxide 28 mmol/L (22-30); Chloride 103 mmol/L (98-107); Sodium 140 mmol/L (137-145)
[2017-09-11 13:22] LABS: Basophils # (A) 0.1 k/uL (0-0.2); Basophils % (A) 1 %; CH 31.1; CHCM 31.6; Eosinophils # (A) 0.5 k/uL (0-0.7); Eosinophils % (A) 6 %; HCT 42.2 % (39.0-53.0); HGB 13.3 gm/dL (13.0-17.5); Luc # (Auto) 0.18; Luc % (Auto) 2; Lymphocytes # (A) 1.7 k/uL (1.0-4.8); Lymphocytes % (A) 21 %; MCH 31.2 pg (25.0-35.0); MCHC 31.6 g/dL (31.0-37.0); MCV 98.7 fL (80.0-100.0); Mean Platelet Volume 7.2; Monocytes # (A) 0.6 k/uL (0-1.0); Monocytes % (A) 7 %; Neutrophils # (A) 5.4 k/uL (1.3-7.7); Neutrophils % (A) 64 %; RBC 4.27 m/uL (4.30-5.90); RDW 13.8 % (11.5-15.5); WBC 8.4 k/uL (3.8-10.6); WBC (Perox) 8.29
== END | disposition home or self-care (01) ==
LOC: LABPAT 11:34
PROVIDERS: ATTEND Physician Assistant
DX: N20.0 Calculus of kidney (principal)
CPT/HCPCS: 36415; 80051; 85025; 93005

== ENCOUNTER → 2017-09-12 | Outpatient (CLI) | payer MEDICARE, BC ==
--- NOTE | 2017-09-12 12:35 | FL ---
EXAMINATION TYPE: FL barium swallow w video DATE OF EXAM: 09/12/2017 COMPARISON: NONE HISTORY: Dysphasia TECHNIQUE: Fluoroscopy. FINDINGS: Fluoroscopic guidance was provided for the procedure performed in conjunction with the [facility] pathology department. Please see complete report forthcoming from the Speech Pathology departmen t. Various consistencies from thin liquid to solids were administered. Fluoroscopy time 3.04 minutes. Number of images: 0. No aspiration or penetration was evident. Pooling is evident within the vallecula. There was normal propulsion of the bolus. There are marked anterior cervical spurs present within the mid cervical spine The proximal esophageal opening at the level of the epiglottis. This may be interfering with the swal lowing mechanism. Please see speech pathology report. IMPRESSION: 1. No aspiration or penetration. 2. Large anterior cervical spurs may be causing mechanical complication of the swallowing mechanism.
== END | disposition home or self-care (01) ==
LOC: RADFLMAIN 11:07
PROVIDERS: ATTEND Otolaryngology
DX: R13.10 Dysphagia, unspecified (principal)
CPT/HCPCS: 74230

== ENCOUNTER 2017-09-16 06:38 | Day surgery (SDC) | payer MEDICARE, BC ==
[2017-09-10 16:21] VITALS: BMI 27.8
[~2017-09-16 06:38] MED LIST: LACTATED RINGERS 1,000 ML IV SCH; Pre Op ABX Message 1 EACH MISC MISCELLANE ONE
[2017-09-16 06:53] VITALS: RESP 16; TEMP 97.2
[2017-09-16] MEDS ORDERED: LIDOCAINE 1% 20 ML VIAL (10MG/ML) FOR IV START INTRADERMA ONE (06:57)
[2017-09-16 07:00] LABS: Glucose,Whole Blood 112 mg/dL (75-99)
--- NOTE | 2017-09-16 07:20 | XR ---
EXAMINATION TYPE: XR KUB DATE OF EXAM: 09/16/2017 CLINICAL DATA: 87-year-old male prelithotripsy exam for right-sided kidney stone, [facility] COMPARISON: 10/11/2016 FINDINGS: Moderate stool burden. Nonobstructive bowel gas pattern. Some retained oral contrast material within the left hemicolon. Approximately 3 small vague densities are present in the right mid abdomen measur ing up to 5 mm. Degenerative changes lumbar spine. Multiple pelvic phleboliths. IMPRESSION: Suspect underlying right-sided nephrolithiasis. 3 vague densities are seen measuring up to 5 mm. Gavi ined oral contrast material within the left hemicolon.
[2017-09-16] MEDS ORDERED: fentaNYL (PF) 50 MCG/ML 2 ML AMP ONE (07:37)
[2017-09-16] MEDS ORDERED: LIDOCAINE 1% INJ 10MG/ML (20 ML MDV) ONE (07:37)
[2017-09-16] MEDS ORDERED: PHENYLEPHRINE-0.9% NACL SYG 1 MG/10 ML SYRINGE ONE (07:37)
[2017-09-16] MEDS ORDERED: MIDAZOLAM 2 MG/2 ML VIAL ONE (07:37)
[2017-09-16] MEDS ORDERED: PROPOFOL 10 MG/ML 20 ML VIAL IV ONE (07:37)
[2017-09-16 08:35] VITALS: PULSE 69
--- NOTE | 2017-09-16 08:37 | P.OP ---
Date of Procedure: 09/16/17 Preoperative Diagnosis: Right renal calculi Postoperative Diagnosis: Right renal calculi Procedure(s) Performed: Extracorporal shock wave lithotripsy Anesthesia: MAC Disposition: PACU Indications for Procedure: The patient is an 87-year-old male with a history of urolithiasis and right flank pain. A recent KUB identified 3 calculi in the right kidney measuring between 2 and 4 mm in diameter. Treatment options were reviewed with Dr. Anderson and ESWL has been chosen for treatment. Description of Procedure: The patient was taken to the lithotripsy suite where adequate intravenous sedation was given. The patient was placed in the supine position on the fluoroscopy table. A 4 mm calculus was identified in the lower pole of the right kidney using biplanar fluoroscopy. Lithotripsy was performed using the Dornier compact delta unit. The patient received 1050 shocks at level 4 with good fragmentation. A 2 mm calculus was then identified in a midpole calyx and the patient received an additional 750 shocks at level 4 and this calculus also appeared to fragment. The 2 mm calculus in the upper pole of the kidney was not identifiable on fluoroscopy and in view of this the procedure was terminated Patient tolerated procedure well and left the operative room awake and in satisfactory condition. He was seen back in [address] Anderson for follow-up.
[2017-09-16 08:48] VITALS: BP 136/75
== END 2017-09-16 10:26 | disposition home or self-care (01) ==
LOC: ORWHC2ENDO 06:38
PROVIDERS: ATTEND Urology
DX: N20.0 Calculus of kidney (principal); I10 Essential (primary) hypertension; E11.9 Type 2 diabetes mellitus without complications; I48.91 Unspecified atrial fibrillation; M19.90 Unspecified osteoarthritis, unspecified site; F17.290 Nicotine dependence, other tobacco product, uncomplicated; Z79.01 Long term (current) use of anticoagulants; Z79.84 Long term (current) use of oral hypoglycemic drugs; Z79.1 Long term (current) use of non-steroidal anti-inflammatories (NSAID); Z79.899 Other long term (current) drug therapy; Z96.0 Presence of urogenital implants
CPT/HCPCS: 50590; 74000; J2250; J2001; J3010; J2370; J2704

== ENCOUNTER → 2017-09-26 | Outpatient (CLI) | payer MEDICARE, BC ==
--- NOTE | 2017-09-26 12:17 | XR ---
Abdomen HISTORY: Status post lithotripsy, renal calculi Frontal view of the abdomen on 2 images correlated prior abdomen 09/16/2017, CT abdomen pelvis from [facility] 03/22/2017 Probable contrast or calcification within diverticula as well as phleboliths, vascular calcifications within the pelvis are noted. Right ureteral calculus could be present superimposed over the sacroili ac joint on the right as on previous exams measuring approximately 6 to 7 mm in cephalad to caudal di mension.. Degenerative disc changes noted in the visualized spine. Small calculus seen over the lower pole of the right kidney measures approximately 3 to 4 mm. No definite additional calculi within the kidneys. Lung bases are clear. No evident bowel obstruction or pneumoperitoneum. IMPRESSION: Suspect right nephrolithiasis. Right ureteral calculus is not excluded.
== END | disposition home or self-care (01) ==
LOC: RADXRMAIN 09:38
PROVIDERS: ATTEND Urology
DX: N20.1 Calculus of ureter (principal); Z98.890 Other specified postprocedural states
CPT/HCPCS: 74000

== ENCOUNTER 2017-11-06 11:07 | Emergency (ER) | payer MEDICARE, BC ==
--- NOTE | 2017-11-06 12:12 | ED ---
General Adult HPI - General Chief complaint: Back Pain/Injury Stated complaint: FALL, BACK PAIN, POSS KIDNEY STONE Time Seen by Provider: 11/06/17 11:25 Source: patient, family, RN notes reviewed, old records reviewed Mode of arrival: wheelchair Limitations: physical limitation - History of Present Illness Initial comments: 87-year-old male presents for evaluation of right flank pain. Patient has had intermittent right flank and low back pain for the past 1-2 weeks. Describes pain is worse with movement. Patient has a history of infected kidney stones with sepsis and prolonged hospital stay approximately 9 months ago. Patient denies dysuria or hematuria. Denies fever. Does complain of some generalized weakness which has been ongoing for the past several days. Denies any chest pain or shortness of breath. Yesterday the patient had a fall with worsening of his right low back pain. Patient didn't hit his head although this was a minor trauma, no LOC, no injury. Patient denies headache. No neck pain. Patient is currently on anticoagulation for history of atrial fibrillation. - Related Data Home Medications Medication Instructions Recorded Confirmed Lisinopril [Zestril] 2.5 mg PO QAM 05/25/15 11/06/17 glipiZIDE [Glucotrol] 10 mg PO DAILY 10/03/16 11/06/17 Metoprolol Succinate (ER) [Toprol 100 mg PO DAILY 03/22/17 11/06/17 XL] Rivaroxaban [Xarelto] 10 mg PO HS 03/22/17 11/06/17 metFORMIN HCL [Metformin HCl] 1,000 mg PO QAM 03/22/17 11/06/17 Travoprost [Travatan Z 0.004%] 1 drop BOTH EYES 03/24/17 11/06/17 Ascorbic Acid [Vitamin C] 500 mg PO DAILY 09/10/17 11/06/17 Multivitamins, Thera [Multivitamin 1 tab PO DAILY 09/10/17 11/06/17 (formulary)] diphenhydrAMINE HCL [Benadryl] 25 mg PO DAILY 09/10/17 11/06/17 metFORMIN HCL [metFORMIN HCL] 500 mg PO W/SUPPER 11/06/17 11/06/17 Allergies Allergy/AdvReac Type Severity Reaction Status Date / Time No Known Allergies Allergy Verified 11/06/17 12:53 Review of Systems ROS Statement: Those systems with pertinent positive or pertinent negative responses have been documented in the HPI. ROS Other: All systems not noted in ROS Statement are negative. 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 Patient reports history of arrhythmia for which he is on Xarelto. History of Any Multi-Drug Resistant Organisms: None Reported Past Surgical History: Orthopedic Surgery Additional Past Surgical History / Comment(s): ANKLE SURG WITH PINS. Past Anesthesia/Blood Transfusion Reactions: No Reported Reaction Past Psychological History: No Psychological Hx Reported Smoking Status: Current every day smoker Past Alcohol Use History: None Reported Past Drug Use History: None Reported - Past Family History Father Family Medical History: CVA/TIA Mother Family Medical History: Congestive Heart Failure (CHF) General Exam Limitations: physical limitation General appearance: alert, in no apparent distress Head exam: Present: atraumatic, normocephalic Eye exam: Present: normal appearance, PERRL, EOMI ENT exam: Present: normal exam Neck exam: Present: normal inspection, full ROM. Absent: tenderness, meningismus Respiratory exam: Present: normal lung sounds bilaterally. Absent: respiratory distress Cardiovascular Exam: Present: regular rate, normal rhythm GI/Abdominal exam: Present: soft. Absent: distended, tenderness Extremities exam: Present: normal inspection, normal capillary refill. Absent: pedal edema, calf tenderness Back exam: Present: full ROM, tenderness, CVA tenderness (R), paraspinal tenderness. Absent: vertebral tenderness Neurological exam: Present: alert, oriented X3, CN II-XII intact, normal gait, motor sensory deficit, reflexes normal Psychiatric exam: Present: normal affect, normal mood Skin exam: Present: warm, dry, intact. Absent: cyanosis, diaphoretic Course Vital Signs 11/06/17 11/06/17 11/06/17 11:20 12:12 13:00 Temperature 97.8 F Pulse Rate 84 85 86 Respiratory 20 18 18 Rate Blood Pressure 118/71 135/60 138/71 O2 Sat by Pulse 96 95 99 Oximetry 11/06/17 14:31 Temperature Pulse Rate 79 Respiratory 18 Rate Blood Pressure 165/74 O2 Sat by Pulse 100 Oximetry EKG Findings - EKG Comments: EKG Findings:: EKG shows normal sinus rhythm, ventricular rate 88, OR interval 154, castration 84, QTC 411, no signs of ischemia Medical Decision Making - Medical Decision Making 87-year-old male presenting with fall and low back pain. Patient was initially concerned this may be related to kidney stone was he's had these in the past. Patient did fall with minor head injury which she believes secondary to weakness. Denies any chest pain or shortness of breath. X-rays were obtained including x-ray of the chest which was negative, CT of the head which is negative for intracranial hemorrhage, CT cervical spine negative for fracture subluxation. CT the abdomen and pelvis shows a 4 mm nonobstructing right renal calculus. No acute bony abnormality in the lumbar spine. Patient's pain complaint is primarily right lumbosacral. He does have arthritic changes within the lumbar spine which may relate to his pain. Laboratory studies reveal normal white blood cell count 9.9, hemoglobin 13.6, lactic acid is mildly elevated 2.9 as well as a magnesium 1.2 which is replaced. Patient is given IV hydration and magnesium replacement in the emergency department. He does not wish to stay in the hospital for further treatment. Lactic acid likely related to dehydration. repeat lactic acidosis 2.0. urinalysis is clear , EKG nonischemic, troponin negative. Patient will be discharged home with close outpatient follow-up. Pt will take [id number] supplemental magnesium and follow-up with primary care physician for repeat labs. - Lab Data Result diagrams: 11/06/17 12:10 11/06/17 12:10 Lab Results 11/06/17 11/06/17 11/06/17 Range/Units 12:10 12:10 12:10 WBC 9.9 (3.8-10.6) k/uL RBC 4.37 (4.30-5.90) m/uL Hgb 13.6 (13.0-17.5) gm/dL Hct 41.3 (39.0-53.0) % MCV 94.4 (80.0-100.0) fL MCH 31.1 (25.0-35.0) pg MCHC 32.9 (31.0-37.0) g/dL RDW 13.8 (11.5-15.5) % Plt Count 312 (150-450) k/uL Neutrophils % 78 % Lymphocytes % 13 % Monocytes % 5 % Eosinophils % 2 % Basophils % 0 % Neutrophils # 7.7 (1.3-7.7) k/uL Lymphocytes # 1.3 (1.0-4.8) k/uL Monocytes # 0.5 (0-1.0) k/uL Eosinophils # 0.2 (0-0.7) k/uL Basophils # 0.0 (0-0.2) k/uL PT (9.0-12.0) sec INR (<1.2) APTT (22.0-30.0) sec Sodium 140 (137-145) mmol/L Potassium 5.0 (3.5-5.1) mmol/L Chloride 104 (98-107) mmol/L Carbon Dioxide 23 (22-30) mmol/L Anion Gap 13 mmol/L BUN 29 H (9-20) mg/dL Creatinine 1.00 (0.66-1.25) mg/dL Est GFR (MDRD) Af Amer >60 (>60 ml/min/1.73 sqM) Est GFR (MDRD) Non-Af >60 (>60 ml/min/1.73 sqM) Glucose 244 H (74-99) mg/dL Lactic Ac Sepsis Rflx Plasma Lactic Acid Jay (0.7-2.0) mmol/L Calcium 9.9 (8.4-10.2) mg/dL Magnesium 1.2 L (1.6-2.3) mg/dL Total Bilirubin 0.5 (0.2-1.3) mg/dL AST 29 (17-59) U/L ALT 25 (21-72) U/L Alkaline Phosphatase 81 (38-126) U/L Total Creatine Kinase 60 (55-170) U/L CK-MB (CK-2) 0.9 (0.0-2.4) ng/mL CK-MB (CK-2) Rel Index 1.5 Troponin I <0.012 (0.000-0.034) ng/mL NT-Pro-B Natriuret Pep pg/mL Total Protein 6.6 (6.3-8.2) g/dL Albumin 4.2 (3.5-5.0) g/dL Urine Color Urine Appearance (Clear) Urine pH (5.0-8.0) Ur Specific [place] (1.001-1.035) Urine Protein (Negative) Urine Glucose (UA) (Negative) Urine Ketones (Negative) Urine Blood (Negative) Urine Nitrite (Negative) Urine Bilirubin (Negative) Urine Urobilinogen (<2.0) mg/dL Ur Leukocyte Esterase (Negative) 11/06/17 11/06/17 11/06/17 Range/Units 12:10 12:10 12:10 WBC (3.8-10.6) k/uL RBC (4.30-5.90) m/uL Hgb (13.0-17.5) gm/dL Hct (39.0-53.0) % MCV (80.0-100.0) fL MCH (25.0-35.0) pg MCHC (31.0-37.0) g/dL RDW (11.5-15.5) % Plt Count (150-450) k/uL Neutrophils % % Lymphocytes % % Monocytes % % Eosinophils % % Basophils % % Neutrophils # (1.3-7.7) k/uL Lymphocytes # (1.0-4.8) k/uL Monocytes # (0-1.0) k/uL Eosinophils # (0-0.7) k/uL Basophils # (0-0.2) k/uL PT 11.2 (9.0-12.0) sec INR 1.2 H (<1.2) APTT 24.1 (22.0-30.0) sec Sodium (137-145) mmol/L Potassium (3.5-5.1) mmol/L Chloride (98-107) mmol/L Carbon Dioxide (22-30) mmol/L Anion Gap mmol/L BUN (9-20) mg/dL Creatinine (0.66-1.25) mg/dL Est GFR (MDRD) Af Amer (>60 ml/min/1.73 sqM) Est GFR (MDRD) Non-Af (>60 ml/min/1.73 sqM) Glucose (74-99) mg/dL Lactic Ac Sepsis Rflx Plasma Lactic Acid Jay 2.9 H* (0.7-2.0) mmol/L Calcium (8.4-10.2) mg/dL Magnesium (1.6-2.3) mg/dL Total Bilirubin (0.2-1.3) mg/dL AST (17-59) U/L ALT (21-72) U/L Alkaline Phosphatase (38-126) U/L Total Creatine Kinase (55-170) U/L CK-MB (CK-2) (0.0-2.4) ng/mL CK-MB (CK-2) Rel Index Troponin I (0.000-0.034) ng/mL NT-Pro-B Natriuret Pep 76 pg/mL Total Protein (6.3-8.2) g/dL Albumin (3.5-5.0) g/dL Urine Color Urine Appearance (Clear) Urine pH (5.0-8.0) Ur Specific [place] (1.001-1.035) Urine Protein (Negative) Urine Glucose (UA) (Negative) Urine Ketones (Negative) Urine Blood (Negative) Urine Nitrite (Negative) Urine Bilirubin (Negative) Urine Urobilinogen (<2.0) mg/dL Ur Leukocyte Esterase (Negative) 11/06/17 11/06/17 11/06/17 Range/Units 13:03 13:07 16:25 WBC (3.8-10.6) k/uL RBC (4.30-5.90) m/uL Hgb (13.0-17.5) gm/dL Hct (39.0-53.0) % MCV (80.0-100.0) fL MCH (25.0-35.0) pg MCHC (31.0-37.0) g/dL RDW (11.5-15.5) % Plt Count (150-450) k/uL Neutrophils % % Lymphocytes % % Monocytes % % Eosinophils % % Basophils % % Neutrophils # (1.3-7.7) k/uL Lymphocytes # (1.0-4.8) k/uL Monocytes # (0-1.0) k/uL Eosinophils # (0-0.7) k/uL Basophils # (0-0.2) k/uL PT (9.0-12.0) sec INR (<1.2) APTT (22.0-30.0) sec Sodium (137-145) mmol/L Potassium (3.5-5.1) mmol/L Chloride (98-107) mmol/L Carbon Dioxide (22-30) mmol/L Anion Gap mmol/L BUN (9-20) mg/dL Creatinine (0.66-1.25) mg/dL Est GFR (MDRD) Af Amer (>60 ml/min/1.73 sqM) Est GFR (MDRD) Non-Af (>60 ml/min/1.73 sqM) Glucose (74-99) mg/dL Lactic Ac Sepsis Rflx Y Plasma Lactic Acid Jay 2.0 (0.7-2.0) mmol/L Calcium (8.4-10.2) mg/dL Magnesium (1.6-2.3) mg/dL Total Bilirubin (0.2-1.3) mg/dL AST (17-59) U/L ALT (21-72) U/L Alkaline Phosphatase (38-126) U/L Total Creatine Kinase (55-170) U/L CK-MB (CK-2) (0.0-2.4) ng/mL CK-MB (CK-2) Rel Index Troponin I (0.000-0.034) ng/mL NT-Pro-B Natriuret Pep pg/mL Total Protein (6.3-8.2) g/dL Albumin (3.5-5.0) g/dL Urine Color Yellow Urine Appearance Clear (Clear) Urine pH 5.0 (5.0-8.0) Ur Specific [place] 1.019 (1.001-1.035) Urine Protein Negative (Negative) Urine Glucose (UA) 4+ H (Negative) Urine Ketones Negative (Negative) Urine Blood Negative (Negative) Urine Nitrite Negative (Negative) Urine Bilirubin Negative (Negative) Urine Urobilinogen <2.0 (<2.0) mg/dL Ur Leukocyte Esterase Negative (Negative) Disposition Clinical Impression: Strain of lumbar region, Dehydration, Hypomagnesemia Disposition: HOME SELF-CARE Condition: Good Instructions: Acute Low Back Pain (ED) Referrals: Hannah Elizabeth MD [Primary Care Provider] - 1-2 days Time of Disposition: 16:54
[2017-11-06 12:24] LABS: Basophils % (A) 0 %; Eosinophils # (A) 0.2 k/uL (0-0.7); Eosinophils % (A) 2 %; HCT 41.3 % (39.0-53.0); HGB 13.6 gm/dL (13.0-17.5); Lymphocytes # (A) 1.3 k/uL (1.0-4.8); Lymphocytes % (A) 13 %; MCH 31.1 pg (25.0-35.0); MCHC 32.9 g/dL (31.0-37.0); MCV 94.4 fL (80.0-100.0); Mean Platelet Volume 7.3; Monocytes # (A) 0.5 k/uL (0-1.0); Monocytes % (A) 5 %; Neutrophils # (A) 7.7 k/uL (1.3-7.7); Neutrophils % (A) 78 %; Platelet Count 312 k/uL (150-450); RBC 4.37 m/uL (4.30-5.90); RDW 13.8 % (11.5-15.5); WBC 9.9 k/uL (3.8-10.6)
[2017-11-06 12:37] LABS: ALT 25 U/L (21-72); AST 29 U/L (17-59); Albumin 4.2 g/dL (3.5-5.0); Alkaline Phosphatase 81 U/L (38-126); Anion Gap 13 mmol/L; Blood Urea Nitrogen 29 mg/dL (9-20); Calcium 9.9 mg/dL (8.4-10.2); Carbon Dioxide 23 mmol/L (22-30); Chloride 104 mmol/L (98-107); Glucose 244 mg/dL (74-99); Magnesium 1.2 mg/dL (1.6-2.3); Sodium 140 mmol/L (137-145); Total Bilirubin 0.5 mg/dL (0.2-1.3); Total Protein 6.6 g/dL (6.3-8.2)
[2017-11-06 12:56] LABS: INR 1.2 (<1.2); Partial Thromboplastin Time 24.1 sec (22.0-30.0); Prothrombin Time 11.2 sec (9.0-12.0)
--- NOTE | 2017-11-06 12:59 | XR ---
EXAMINATION TYPE: XR chest 2V DATE OF EXAM: 11/06/2017 COMPARISON: 10/03/16 HISTORY: Shortness of breath TECHNIQUE: Frontal and lateral views of the chest are obtained. FINDINGS: Scattered senescent parenchymal changes noted. Hyperinflation compatible with COPD. No evidence for infiltrate. No evidence for atelectasis. Heart size is stable. Mediastinal structures are stable and grossly unremarkable. No evidence for hilar prominence. Degenerative changes dorsal spine. IMPRESSION: 1. No evidence for acute pulmonary disease.
[2017-11-06 13:04] LABS: Creatine Kinase 60 U/L (55-170)
--- NOTE | 2017-11-06 13:13 | CT ---
EXAMINATION TYPE: CT brain cspine wo con DATE OF EXAM: 11/06/2017 COMPARISON: CT brain the cervical spine May 20, 2015. HISTORY: fall yesterday with headache and neck pain CT DLP: 2016 mGycm. Automated Exposure Control for Dose Reduction was Utilized. TECHNIQUE: CT scan of the head and cervical spine are performed without contrast. FINDINGS: There is no acute intracranial hemorrhage or midline shift identified. There is ventricul ar and sulcal prominence consistent with diffuse cerebral atrophy. There is low-attenuation in the pe riventricular white matter presumed on basis of product of chronic small vessel ischemic change in pa tient this age. Scleral calcification both globes is redemonstrated. Visualized paranasal sinuses are grossly clear. Some sclerosis posterior left inferior mastoid could reflect product of chronic masto iditis is unchanged from prior. The calvarium is intact. Cervical spine is visualized in its entirety from C1 through upper thoracic levels and demonstrates s atisfactory alignment without evidence of acute fracture or dislocation. Prevertebral soft tissue ap pears within normal limits. The C1-C2 articulation is within normal limits on the coronal images. Osseous structures are demineralized. Vertebral body heights and disc space heights are maintained. T here are posterior disc herniations effacing anterior thecal sac at C4-C5 and C5-C6 levels on sagitta l image 19. There are large bridging anterior osteophyte throughout the visualized cervical thoracic spine with only break at C4-C5 level redemonstrated. Review of axial images shows thyroid gland to ap pear within normal limits. There is mild to moderate calcified plaque at bilateral carotid bulbs. Thi s emphysematous change lung apices. IMPRESSION: 1. There is no acute fracture or dislocation evident in the cervical spine. Demineralization multilev el degenerative changes redemonstrated. 2. No acute intracranial hemorrhage or midline shift is seen. There is moderate diffuse cerebral atro phy and chronic small vessel ischemic change redemonstrated. No significant change from prior CT.
[2017-11-06 13:17] LABS: Creatine Kinase MB 0.9 ng/mL (0.0-2.4); Troponin I <0.012 ng/mL (0.000-0.034)
[2017-11-06] MEDS ORDERED: SODIUM CHLORIDE 0.9% 250 ML IV STA (13:21)
[2017-11-06 13:22] LABS: Appearance,Urine Clear (Clear); Bilirubin,Urine Negative (Negative); Blood,Urine Negative (Negative); Color,Urine Yellow; Glucose,Urine (UA) 4+ (Negative); Ketones,Urine Negative (Negative); Leukocyte Esterase,Urine Negative (Negative); Nitrite,Urine Negative (Negative); Protein,Urine Negative (Negative); Specific Gravity,Urine 1.019 (1.001-1.035); Urobilinogen,Urine <2.0 mg/dL (<2.0)
[2017-11-06] MEDS ORDERED: SODIUM CHLORIDE 0.9% 1,000 ML IV STA (13:22)
--- NOTE | 2017-11-06 13:36 | CT ---
EXAMINATION TYPE: CT abdomen pelvis wo con DATE OF EXAM: 11/06/2017 HISTORY: Rt flank pain CT DLP: 1205 mGycm. Automated Exposure Control for Dose Reduction was Utilized. TECHNIQUE: CT scan of the abdomen and pelvis is performed without oral or IV contrast. COMPARISON: CT abdomen and pelvis October 03, 2016. FINDINGS: Within the limitations of a non-contrast study, the following observations are made. LUNG BASES: There is severe three-vessel coronary artery calcification redemonstrated. There is depen dent atelectasis in both lung bases. LIVER/GB: No significant abnormality is appreciated. PANCREAS: No significant abnormality is seen. SPLEEN: No significant abnormality is seen. ADRENALS: No significant abnormality is seen. KIDNEYS: There is cortical thinning in both kidneys with perinephric fat stranding. Findings are pres umed product of chronic medical renal disease. There is persistent 4 mm calculus lower pole level rig ht kidney coronal image 51. No hydronephrosis or obstructing renal calculi are identified bilaterally . There are scattered pelvic phleboliths. No intraluminal calculus is seen in poorly distended bladde r. BOWEL: Normal-appearing appendix is seen from cecum. There are diverticula in the sigmoid colon. Ther e is no CT evidence for acute diverticulitis. GENITAL ORGANS: Central zone calcifications are seen in not enlarged prostate gland. LYMPH NODES: No greater than 1cm abdominal or pelvic lymph nodes are appreciated. OSSEOUS STRUCTURES: There is moderate to severe joint space loss and spurring in both hip joints. The re is severe multilevel spurring in the visualized spine. There is facet arthropathy lower lumbar lev els. There is some narrowing of the right sacroiliac joint. OTHER: There is moderate to severe calcified plaque of aorta extending into branch vessels. IMPRESSION: Stable 4 mm lower pole right renal calculus. No hydronephrosis or obstructing renal calcu li are identified on current study.
[2017-11-06] MEDS: MAGNESIUM SULFATE-D5W PMX 1 GM in DEXTROSE/WATER 1 100ML.BAG IVPB SCH ×2 (14:36→15:38)
[2017-11-06 17:18] VITALS: BP 134/87; PULSE 81; RESP 16; TEMP 97.1
== END 2017-11-06 17:18 | disposition home or self-care (01) ==
LOC: EC 11:07
DX: S39.012A Strain of muscle, fascia and tendon of lower back, initial encounter (principal); E83.42 Hypomagnesemia; E86.0 Dehydration; N20.0 Calculus of kidney; I48.91 Unspecified atrial fibrillation; M47.816 Spondylosis without myelopathy or radiculopathy, lumbar region; I10 Essential (primary) hypertension; E11.9 Type 2 diabetes mellitus without complications; F17.200 Nicotine dependence, unspecified, uncomplicated; Z79.01 Long term (current) use of anticoagulants; Z79.84 Long term (current) use of oral hypoglycemic drugs; Z79.899 Other long term (current) drug therapy; W19.XXXA Unspecified fall, initial encounter
CPT/HCPCS: 36415; 93005; 83880; 80053; 82550; 82553; 83605; 83735; 84484; 85025; 85610; 85730; 81003; 71046; 72125; 70450; 74176; 99284; 96365; 96366; 96361; J3475

== ENCOUNTER → 2017-12-25 | Outpatient (CLI) | payer MEDICARE, BC ==
--- NOTE | 2017-12-25 10:50 | XR ---
EXAMINATION TYPE: XR abdomen 1V DATE OF EXAM: 12/25/2017 10:35 AM CLINICAL HISTORY: Post lithotripsy. Abdominal pain. TECHNIQUE: Single supine KUB image of the abdomen is obtained. COMPARISON: 11/06/2017 and 09/26/2017 FINDINGS: There is a 4 mm right lower pole renal calculus and new mid pole leg 2 mm density that could represen t an additional calculus or fragment of the previously seen calculus from the recent lithotripsy. Chronic fracture deformity of the left L1-L4 transverse processes. Advanced multilevel degenerative c hanges of visualized lumbosacral spine are present. Similar phleboliths are noted within the right he mipelvis. Scattered gas is seen in non-distended small and large bowel loops. IMPRESSION: 1. Redemonstration of a 4 mm right lower pole renal calculus and additional punctate density in the m id pole that could relate to an additional 2 mm calculus. 2. Nonobstructive bowel gas pattern.
== END | disposition home or self-care (01) ==
LOC: RADXRMAIN 10:15
PROVIDERS: ATTEND Urology
DX: N20.0 Calculus of kidney (principal)
CPT/HCPCS: 74018

== ENCOUNTER 2018-08-14 10:02 | Inpatient (IN) | payer MEDICARE, BC ==
[2018-08-14] MEDS ORDERED: SODIUM CHLORIDE 0.9% 500 ML 500 ML IV STA (10:27)
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
[2018-08-14 11:54] LABS: Glucose,Whole Blood 163 mg/dL (75-99)
[2018-08-14 11:57] LABS: Appearance,Urine Turbid (Clear); Bacteria,Urine Occasional /hpf; Bilirubin,Urine Negative (Negative); Blood,Urine Moderate (Negative); Color,Urine Yellow; Glucose,Urine (UA) 2+ (Negative); Ketones,Urine Trace (Negative); Leukocyte Esterase,Urine Large (Negative); Mucus,Urine Many /hpf; Nitrite,Urine Positive (Negative); Protein,Urine 1+ (Negative); RBC,Urine 127 /hpf (0-5); Specific Gravity,Urine 1.019 (1.001-1.035); Urobilinogen,Urine <2.0 mg/dL (<2.0); WBC,Urine >182 /hpf (0-5)
[2018-08-14] MEDS ORDERED: LEVOFLOXACIN 750MG-D5W PMX 750 MG in DEXTROSE/WATER 1 150ML.BAG IVPB STA (12:11)
[2018-08-14 12:12] LABS: Basophils # (A) 0.1 k/uL (0-0.2); Basophils % (A) 0 %; Eosinophils # (A) 0.1 k/uL (0-0.7); Eosinophils % (A) 1 %; HCT 42.5 % (39.0-53.0); HGB 13.8 gm/dL (13.0-17.5); Lymphocytes # (A) 0.9 k/uL (1.0-4.8); Lymphocytes % (A) 5 %; MCH 31.4 pg (25.0-35.0); MCHC 32.5 g/dL (31.0-37.0); MCV 96.7 fL (80.0-100.0); Mean Platelet Volume 6.8; Monocytes # (A) 1.1 k/uL (0-1.0); Monocytes % (A) 6 %; Neutrophils # (A) 16.1 k/uL (1.3-7.7); Neutrophils % (A) 87 %; Platelet Count 272 k/uL (150-450); RBC 4.39 m/uL (4.30-5.90); RDW 12.9 % (11.5-15.5); WBC 18.4 k/uL (3.8-10.6)
--- NOTE | 2018-08-14 12:17 | XR ---
EXAMINATION TYPE: XR KUB DATE OF EXAM: 08/14/2018 CLINICAL DATA: 88-year-old male with right-sided abdominal pain, PHH COMPARISON: 09/26/2017 FINDINGS: Supine imaging limited for assessment of free intraperitoneal air. Nonobstructive bowel gas pattern. Mild stool on the right side of the abdomen. Multiple pelvic phleboliths are demonstrated. No definite suspicious calcifications are seen. IMPRESSION: No definite suspicious calcification is radiographically apparent.
[2018-08-14 12:24] LABS: Albumin 4.4 g/dL (3.5-5.0); Calcium 9.9 mg/dL (8.4-10.2); Total Bilirubin 1.1 mg/dL (0.2-1.3); Total Protein 7.1 g/dL (6.3-8.2)
[2018-08-14 12:25] LABS: INR 1.2 (<1.2); Partial Thromboplastin Time 25.4 sec (22.0-30.0); Prothrombin Time 11.3 sec (9.0-12.0)
[2018-08-14] MEDS ORDERED: ACETAMINOPHEN TAB 325 MG TAB PO PRN (13:30)
[2018-08-14] MEDS ORDERED: NALOXONE 0.4 MG/ML 1 ML VIAL IV PRN (13:30)
[2018-08-14] MEDS ORDERED: HYDROcodone/APAP 5-325MG 1 EACH TAB PO PRN (13:30)
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
[2018-08-14] MEDS: SODIUM CHLORIDE 0.9% 1,000 ML IV SCH (17:21)
[2018-08-14] MEDS: PIPERACILLIN-TAZOBACTAM 3.375 GM in DEXTROSE/WATER 1 50ML.BAG IVPB SCH ×2 (17:21→23:40)
[2018-08-14] MEDS: metFORMIN 500 MG TAB PO SCH (18:18)
[2018-08-14] MEDS: METOPROLOL TARTRATE 25 MG TAB PO SCH (20:07)
[2018-08-14] MEDS: LATANOPROST 0.005% OPHTH DROPS 2.5 ML BTL RIGHT EYE SCH (20:07)
[2018-08-14] MEDS: glipiZIDE 10 MG TAB PO SCH (20:07)
[2018-08-14 21:30] LABS: Glucose,Whole Blood 239 mg/dL (75-99)
[2018-08-15 04:27] LABS: Basophils % (A) 0 %; Eosinophils # (A) 0.1 k/uL (0-0.7); Eosinophils % (A) 1 %; HCT 37.8 % (39.0-53.0); HGB 12.5 gm/dL (13.0-17.5); Lymphocytes # (A) 1.5 k/uL (1.0-4.8); Lymphocytes % (A) 9 %; MCH 31.6 pg (25.0-35.0); MCHC 32.9 g/dL (31.0-37.0); MCV 95.9 fL (80.0-100.0); Mean Platelet Volume 6.7; Monocytes % (A) 6 %; Neutrophils # (A) 13.9 k/uL (1.3-7.7); Neutrophils % (A) 82 %; Platelet Count 197 k/uL (150-450); RBC 3.94 m/uL (4.30-5.90); WBC 16.9 k/uL (3.8-10.6)
[2018-08-15 04:33] LABS: Albumin 3.4 g/dL (3.5-5.0); Calcium 9.2 mg/dL (8.4-10.2); Magnesium 1.4 mg/dL (1.6-2.3); Potassium 4.1 mmol/L (3.5-5.1); Total Bilirubin 1.1 mg/dL (0.2-1.3); Total Protein 5.9 g/dL (6.3-8.2)
[2018-08-15] MEDS: SODIUM CHLORIDE 0.9% 1,000 ML IV SCH (04:38)
[2018-08-15 07:11] LABS: Glucose,Whole Blood 123 mg/dL (75-99)
[2018-08-15] MEDS: PIPERACILLIN-TAZOBACTAM 3.375 GM in DEXTROSE/WATER 1 50ML.BAG IVPB SCH ×2 (08:28→16:49)
[2018-08-15] MEDS: MAGNESIUM OXIDE 400 MG TAB PO SCH (08:28)
[2018-08-15] MEDS: LISINOPRIL 2.5 MG TAB PO SCH (08:28)
[2018-08-15] MEDS: METOPROLOL TARTRATE 25 MG TAB PO SCH ×3 (08:28→22:25)
[2018-08-15] MEDS: glipiZIDE 10 MG TAB PO SCH ×2 (08:29→22:24)
[2018-08-15] MEDS: PANTOPRAZOLE 40 MG TABLET PO SCH (08:29)
[2018-08-15] MEDS: metFORMIN 500 MG TAB PO SCH ×2 (08:29→18:37)
[2018-08-15] MEDS: RIVAROXABAN 15 MG TAB PO SCH (08:29)
[2018-08-15] MEDS ORDERED: Magnesium Replacement Protocol 1 EACH MISC MISCELLANE PRN (11:05)
[2018-08-15] MEDS: MULTIVITAMINS, THERA 1 EACH TAB PO SCH (11:56)
[2018-08-15] MEDS: MAGNESIUM SULFATE-D5W PMX 1 GM in DEXTROSE/WATER 1 100ML.BAG IVPB SCH ×3 (11:56→15:32)
[2018-08-15 12:26] LABS: Glucose,Whole Blood 185 mg/dL (75-99)
--- NOTE | 2018-08-15 13:12 | P.PN ---
Subjective Progress Note Date: 08/15/18 This is an 88-year-old male one of Dr. Elizabeth with a previous medical history significant for hypertension and hypertensive cardiovascular disease, hyperlipidemia, paroxysmal atrial fibrillation, history of kidney stones, patient presented to the emergency department at [facility] today after he developed to have a significant urinary incontinence and urinary frequency since Saturday he has no fever or chills at this time he does complain of pain in the right flank area, he has no abdominal pain decided that no nausea vomiting or diarrhea, patient was found to have a significant UTI with sepsis he was started on IV antibiotic as well as IV fluid resuscitation he was admitted to the hospital for evaluation urine culture and blood cultures were done. 08/15: Blood sugars are improved in the low 100s. Repeat lactic acid 1.1, WBC 16.9 down from 18.4. Urine culture is in progress, blood cultures status received. Patient is continued on Zosyn. PT and OT have evaluated the patient and recommended home. Patient is sitting up in chair at the bedside with his in attendance. She states that he is much improved from yesterday. Patient denies any new complaints. Family is requesting Dr. Romano be consulted as he is known to the patient. Magnesium 1.4 and has been replaced. Pulse ox is 96% on room air. Patient has been afebrile. Review Of Systems: Constitutional: No fever, no chills, no night sweats. No weight change. No weakness, fatigue or lethargy. No daytime sleepiness. EENT: No headache. No blurred vision or double vision, no loss of vision. No dizziness. No nasal drainage or congestion. No epistaxis. No sore throat. Lungs: No shortness of breath, cough, no sputum production. No wheezing. Cardiovascular: No chest pain, no lower extremity edema. No palpitations. No paroxysmal nocturnal dyspnea. No orthopnea. No lightheadedness or dizziness. No syncopal episodes. Abdominal: No abdominal pain. No nausea, vomiting. No diarrhea. No constipation. No bloody or tarry stools.. No loss of appetite. Genitourinary: + incontinence, + nocturia, + increased frequency, Reports urinary hesitancy, Denies dysuria. Musculoskeletal: No myalgias. No muscle weakness, no gait dysfunction, no frequent falls. No back pain. No neck pain. Integumentary: No wounds, no lesions. No rash or pruritus. No unusual bruising. No change in hair or nails. Psychiatric: No depression. No anxiety. No mood swings. Objective - Vital Signs Vital signs: Vital Signs Temp 98.1 F 08/15/18 06:53 Pulse 100 08/15/18 06:53 Resp 16 08/15/18 06:53 BP 131/72 08/15/18 06:53 Pulse Ox 96 08/15/18 06:53 Intake & Output 08/14/18 08/15/18 08/15/18 18:59 06:59 18:59 Intake Total 200 Output Total 300 Balance 200 -300 Weight 95.254 kg Intake: Oral 200 Output: Urine 300 Other: Voiding Method Urinal Urinal Incontinent # Voids 3 - Exam General appearance: average body habitus, no acute distress, sitting in chair at the bedside - EENT Eyes: anicteric sclerae, EOMI, PERRLA, no ptosis, no scleral icterus, normal appearance ENT: hard of hearing, NA/AT, normal oropharynx, no thrush Ears: bilateral: normal - Neck Neck: no lymphadenopathy, normal ROM, no rigidity, no stridor, no thyromegaly Carotids: bilateral: upstroke normal Thyroid: bilateral: normal size - Respiratory Respiratory: bilateral: diminished, negative: dullness, rales, rhonchi, wheezing , prolonged expiration, prolonged inspiration - Cardiovascular Rhythm: regular Heart sounds: normal: S1, S2 Abnormal Heart Sounds: systolic murmur, no S3 Gallop, no S4 Gallop, no click - Gastrointestinal General gastrointestinal: normal bowel sounds, soft, no splenomegaly, no tenderness, no umbilical hernia, no ventral hernia - Integumentary Integumentary: normal, normal turgor - Neurologic Neurologic: CNII-XII intact - Musculoskeletal Musculoskeletal: generalized weakness - Psychiatric Psychiatric: A&O x's 3, appropriate affect, intact judgment & insight - Labs CBC & Chem 7: 08/15/18 03:48 08/15/18 03:48 Labs: Abnormal Lab Results - Last 24 Hours (Table) 08/14/18 08/14/18 08/14/18 Range/Units 11:04 11:41 11:41 WBC 18.4 H (3.8-10.6) k/uL RBC (4.30-5.90) m/uL Hgb (13.0-17.5) gm/dL Hct (39.0-53.0) % Neutrophils # 16.1 H (1.3-7.7) k/uL Lymphocytes # 0.9 L (1.0-4.8) k/uL Monocytes # 1.1 H (0-1.0) k/uL INR (<1.2) BUN 26 H (9-20) mg/dL Glucose 189 H (74-99) mg/dL POC Glucose (mg/dL) (75-99) mg/dL Plasma Lactic Acid Jay (0.7-2.0) mmol/L Magnesium (1.6-2.3) mg/dL Total Protein (6.3-8.2) g/dL Albumin (3.5-5.0) g/dL Urine Protein 1+ H (Negative) Urine Glucose (UA) 2+ H (Negative) Urine Ketones Trace H (Negative) Urine Blood Moderate H (Negative) Ur Leukocyte Esterase Large H (Negative) Urine RBC 127 H (0-5) /hpf Urine WBC >182 H (0-5) /hpf Urine Bacteria Occasional H (None) /hpf Urine Mucus Many H (None) /hpf 08/14/18 08/14/18 08/14/18 Range/Units 11:41 11:41 11:51 WBC (3.8-10.6) k/uL RBC (4.30-5.90) m/uL Hgb (13.0-17.5) gm/dL Hct (39.0-53.0) % Neutrophils # (1.3-7.7) k/uL Lymphocytes # (1.0-4.8) k/uL Monocytes # (0-1.0) k/uL INR 1.2 H (<1.2) BUN (9-20) mg/dL Glucose (74-99) mg/dL POC Glucose (mg/dL) 163 H (75-99) mg/dL Plasma Lactic Acid Jay 2.1 H* (0.7-2.0) mmol/L Magnesium (1.6-2.3) mg/dL Total Protein (6.3-8.2) g/dL Albumin (3.5-5.0) g/dL Urine Protein (Negative) Urine Glucose (UA) (Negative) Urine Ketones (Negative) Urine Blood (Negative) Ur Leukocyte Esterase (Negative) Urine RBC (0-5) /hpf Urine WBC (0-5) /hpf Urine Bacteria (None) /hpf Urine Mucus (None) /hpf 08/14/18 08/14/18 08/15/18 Range/Units 16:03 21:26 03:48 WBC 16.9 H (3.8-10.6) k/uL RBC 3.94 L (4.30-5.90) m/uL Hgb 12.5 L (13.0-17.5) gm/dL Hct 37.8 L (39.0-53.0) % Neutrophils # 13.9 H (1.3-7.7) k/uL Lymphocytes # (1.0-4.8) k/uL Monocytes # (0-1.0) k/uL INR (<1.2) BUN (9-20) mg/dL Glucose (74-99) mg/dL POC Glucose (mg/dL) 239 H (75-99) mg/dL Plasma Lactic Acid Jay 3.2 H* (0.7-2.0) mmol/L Magnesium (1.6-2.3) mg/dL Total Protein (6.3-8.2) g/dL Albumin (3.5-5.0) g/dL Urine Protein (Negative) Urine Glucose (UA) (Negative) Urine Ketones (Negative) Urine Blood (Negative) Ur Leukocyte Esterase (Negative) Urine RBC (0-5) /hpf Urine WBC (0-5) /hpf Urine Bacteria (None) /hpf Urine Mucus (None) /hpf 08/15/18 08/15/18 Range/Units 03:48 07:01 WBC (3.8-10.6) k/uL RBC (4.30-5.90) m/uL Hgb (13.0-17.5) gm/dL Hct (39.0-53.0) % Neutrophils # (1.3-7.7) k/uL Lymphocytes # (1.0-4.8) k/uL Monocytes # (0-1.0) k/uL INR (<1.2) BUN (9-20) mg/dL Glucose 133 H (74-99) mg/dL POC Glucose (mg/dL) 123 H (75-99) mg/dL Plasma Lactic Acid Jay (0.7-2.0) mmol/L Magnesium 1.4 L (1.6-2.3) mg/dL Total Protein 5.9 L (6.3-8.2) g/dL Albumin 3.4 L (3.5-5.0) g/dL Urine Protein (Negative) Urine Glucose (UA) (Negative) Urine Ketones (Negative) Urine Blood (Negative) Ur Leukocyte Esterase (Negative) Urine RBC (0-5) /hpf Urine WBC (0-5) /hpf Urine Bacteria (None) /hpf Urine Mucus (None) /hpf Microbiology - Last 24 Hours (Table) 08/14/18 11:04 Urine Culture - Preliminary Urine,Voided Assessment and Plan Plan: 1. UTI with sepsis. IV fluid resuscitation discontinued, continue IV antibiotic in the form of Zosyn 3.375 g IV piggyback every 6 hours, urine culture, blood culture, repeat CBC the next 24 hours. 2. Hypertension and hypertensive cardiovascular disease. Continue metoprolol 25 mg orally 3 times every day and lisinopril 2.5 mg orally once every day. 3. Hyperlipidemia. Continue low-cholesterol diet. 4. Diabetes mellitus type 2. Continue metformin 1000 mg orally twice every day and glipizide 10 mg orally twice every day. 5. Osteoarthritis. Stable at this time. 6. History of kidney stones. Stable at this time. 7. Paroxysmal atrial fibrillation currently in sinus rhythm. Continue metoprolol 25 mg orally 3 times every day, Xarelto 15 mg orally once every day. 8. DVT prophylaxis. Currently on Xarelto 15 mg orally once every day. 9. GI prophylaxis. Continue PPI. Patient is full code. Discharge plan: Home Impression and plan of care have been directed as dictated by the signing physician. Barb Goetz nurse practitioner acting as scribe for signing physician.
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
[2018-08-15 17:19] LABS: Glucose,Whole Blood 169 mg/dL (75-99)
[2018-08-15 21:16] LABS: Glucose,Whole Blood 224 mg/dL (75-99)
[2018-08-15] MEDS: LATANOPROST 0.005% OPHTH DROPS 2.5 ML BTL RIGHT EYE SCH (22:25)
[2018-08-16] MEDS: PIPERACILLIN-TAZOBACTAM 3.375 GM in DEXTROSE/WATER 1 50ML.BAG IVPB SCH ×3 (00:55→16:13)
[2018-08-16] MEDS: METOPROLOL TARTRATE 25 MG TAB PO SCH ×4 (01:03→21:51)
[2018-08-16 07:53] LABS: Glucose,Whole Blood 168 mg/dL (75-99)
[2018-08-16] MEDS: LISINOPRIL 2.5 MG TAB PO SCH ×2 (08:42→08:48)
[2018-08-16] MEDS: MULTIVITAMINS, THERA 1 EACH TAB PO SCH (08:42)
[2018-08-16] MEDS: MAGNESIUM OXIDE 400 MG TAB PO SCH (08:42)
[2018-08-16] MEDS: PANTOPRAZOLE 40 MG TABLET PO SCH (08:42)
[2018-08-16] MEDS: glipiZIDE 10 MG TAB PO SCH ×2 (08:42→21:51)
[2018-08-16] MEDS: RIVAROXABAN 15 MG TAB PO SCH (08:42)
[2018-08-16] MEDS: metFORMIN 500 MG TAB PO SCH ×2 (08:43→17:25)
[2018-08-16 08:45] LABS: HGB 13.7 gm/dL (13.0-17.5); MCH 31.3 pg (25.0-35.0); MCHC 32.7 g/dL (31.0-37.0); MCV 95.9 fL (80.0-100.0); Platelet Count 273 k/uL (150-450); RBC 4.39 m/uL (4.30-5.90); RDW 12.9 % (11.5-15.5); WBC 11.9 k/uL (3.8-10.6)
--- NOTE | 2018-08-16 09:49 | P.PN ---
Subjective Progress Note Date: 08/16/18 The patient is feeling better. He is in the hospital for urinary tract infection with sepsis. He is voiding better. His soon as the culture has finalized from a urologic standpoint he can go home. His white count is down to 11.9. Would like to see in the office in follow-up in approximately 2 weeks. Objective - Vital Signs Vital signs: Vital Signs Temp 97.6 F 08/16/18 07:45 Pulse 69 08/16/18 07:45 Resp 16 08/16/18 07:45 BP 92/60 08/16/18 07:45 Pulse Ox 97 08/16/18 07:45 Intake & Output 08/15/18 08/16/18 08/16/18 18:59 06:59 18:59 Intake Total 200 100 Output Total 800 400 Balance -600 -300 Intake: Oral 200 100 Output: Urine 800 400 Other: Voiding Method Urinal Toilet Urinal # Voids 2 1 # Bowel Movements 0 0 - Labs CBC & Chem 7: 08/16/18 08:20 08/15/18 03:48 Labs: Abnormal Lab Results - Last 24 Hours (Table) 08/15/18 08/15/18 08/15/18 Range/Units 12:24 17:08 21:01 WBC (3.8-10.6) k/uL POC Glucose (mg/dL) 185 H 169 H 224 H (75-99) mg/dL 08/16/18 08/16/18 Range/Units 07:49 08:20 WBC 11.9 H (3.8-10.6) k/uL POC Glucose (mg/dL) 168 H (75-99) mg/dL Microbiology - Last 24 Hours (Table) 08/14/18 11:39 Blood Culture - Preliminary Blood No Growth after 24 hours 08/14/18 11:04 Urine Culture - Preliminary Urine,Voided Gram Neg Bacilli
[2018-08-16 12:18] LABS: Glucose,Whole Blood 307 mg/dL (75-99)
--- NOTE | 2018-08-16 13:14 | P.DS ---
Providers Date of admission: 08/14/18 13:42 Attending physician: Nicky Baptiste Consults: 08/15/18 12:25 Consult Physician Routine Consulting Provider: Russell Romano Consult Reason/Comments: uti and sepsis Do you want consulting provider notified?: Yes Primary care physician: Hannah Elizabeth [facility] Course: This is 88 years old male who presented to the emergency department with sepsis. Patient was positive for urinary tract infection associated with leukocytosis and elevated lactic acid level a shunt resuscitated with fluid and improved dramatically was up ambulating in the room tolerating diet denying chest pain, shortness breath, nausea, vomiting, abdominal pain, dizziness, lightheadedness or dysuria. Patient was seen by urology who recommended close follow-up outpatient. Patient white blood count went down to 12,000 down from 18 on prior evaluation and continued to be afebrile over the last 24 hours blood pressure at the time of the discharge was 140/90 and patient state that he feels back at baseline recommendation from urology and myself to stay in the hospital until culture is updated to be able to discharge patient's on appropriate medication but and patient were adamant about going home and threatened to leave AGAINST MEDICAL ADVICE if we don't give them a prescription patient and his were reluctant to hold the recommendation from urology myself and nursing staff who spoke to them at the bedside and they stated that they would like to go and return to the hospital if things are not good at home. Patient will be sent on Levaquin 250 twice daily for total of 10 days and follow-up with his primary care physician in one to 2 days and return to the hospital if he experiences any worsening in his general condition, fever, confusion or hypotension or hypertension Patient Condition at Discharge: Fair Plan - Discharge Summary Discharge Rx Participant: No New Discharge Prescriptions: No Action Lisinopril [Zestril] 2.5 mg PO QAM glipiZIDE [Glucotrol] 10 mg PO BID metFORMIN HCL [Metformin HCl] 1,000 mg PO BID Multivitamins, Thera [Multivitamin (formulary)] 1 tab PO DAILY Magnesium Gluconate [Magonate] 500 mg PO DAILY Latanoprost/Pf [Latanoprost 0.005% Eye Drop] 1 drop RIGHT EYE HS Sildenafil Citrate 100 mg PO ONCE Rivaroxaban [Xarelto] 15 mg PO DAILY Metoprolol Tartrate 25 mg PO TID Levofloxacin [Levaquin] 1 tab PO BID Discharge Medication List Lisinopril [Zestril] 2.5 mg PO QAM 05/25/15 [History] glipiZIDE [Glucotrol] 10 mg PO BID 10/03/16 [History] metFORMIN HCL [Metformin HCl] 1,000 mg PO BID 03/22/17 [History] Multivitamins, Thera [Multivitamin (formulary)] 1 tab PO DAILY 09/10/17 [History ] Latanoprost/Pf [Latanoprost 0.005% Eye Drop] 1 drop RIGHT EYE HS 08/14/18 [ History] Magnesium Gluconate [Magonate] 500 mg PO DAILY 08/14/18 [History] Metoprolol Tartrate 25 mg PO TID 08/14/18 [History] Rivaroxaban [Xarelto] 15 mg PO DAILY 08/14/18 [History] Sildenafil Citrate 100 mg PO ONCE 08/14/18 [History] Levofloxacin [Levaquin] 1 tab PO BID 08/16/18 [History] Follow up Appointment(s)/Referral(s): Hannah Elizabeth MD [Primary Care Provider] - 1-2 days
[2018-08-16 17:26] LABS: Glucose,Whole Blood 263 mg/dL (75-99)
[2018-08-16] MEDS ORDERED: LOPERAMIDE 2 MG CAP PO PRN (18:29)
[2018-08-16 21:13] LABS: Glucose,Whole Blood 172 mg/dL (75-99)
[2018-08-16] MEDS: LATANOPROST 0.005% OPHTH DROPS 2.5 ML BTL RIGHT EYE SCH (21:50)
[2018-08-17] MEDS: PIPERACILLIN-TAZOBACTAM 3.375 GM in DEXTROSE/WATER 1 50ML.BAG IVPB SCH ×2 (00:07→08:31)
[2018-08-17 02:40] VITALS: RESP 20
[2018-08-17 07:18] VITALS: BP 139/78; PULSE 90; TEMP 97.7
[2018-08-17 07:44] LABS: Glucose,Whole Blood 116 mg/dL (75-99)
--- NOTE | 2018-08-17 08:26 | P.PN ---
Subjective Progress Note Date: 08/17/18 The urine culture grew E. coli. It is pansensitive. I wrote a prescription for Bactrim DS for 2 weeks. I'll see the patient in the office in 2 weeks. Objective - Vital Signs Vital signs: Vital Signs Temp 97.7 F 08/17/18 06:35 Pulse 90 08/17/18 06:35 Resp 20 08/17/18 06:35 BP 139/78 08/17/18 06:35 Pulse Ox 95 08/17/18 06:35 Intake & Output 08/16/18 08/17/18 08/17/18 18:59 06:59 18:59 Intake Total 50 200 Balance 50 200 Intake: Intake, IV Titration 50 Amount Piperacillin-Tazobactam 3 50 .375 gm In Dextrose/Water 1 50ml.bag @ 12.5 mls/hr IVPB Q8HR [facility] Rx#: [id number] Oral 200 Other: Voiding Method Toilet Toilet Urinal Urinal # Voids 3 1 # Bowel Movements 0 - Labs CBC & Chem 7: 08/16/18 08:20 08/15/18 03:48 Labs: Abnormal Lab Results - Last 24 Hours (Table) 08/16/18 08/16/18 08/16/18 Range/Units 08:20 12:16 17:22 WBC 11.9 H (3.8-10.6) k/uL POC Glucose (mg/dL) 307 H 263 H (75-99) mg/dL 08/16/18 08/17/18 Range/Units 21:10 07:41 WBC (3.8-10.6) k/uL POC Glucose (mg/dL) 172 H 116 H (75-99) mg/dL Microbiology - Last 24 Hours (Table) 08/14/18 11:04 Urine Culture - Final Urine,Voided Escherichia coli 08/14/18 11:39 Blood Culture - Preliminary Blood No Growth after 48 hours
[2018-08-17] MEDS: PANTOPRAZOLE 40 MG TABLET PO SCH (08:31)
[2018-08-17] MEDS: metFORMIN 500 MG TAB PO SCH (08:31)
[2018-08-17] MEDS: METOPROLOL TARTRATE 25 MG TAB PO SCH (08:32)
[2018-08-17] MEDS: glipiZIDE 10 MG TAB PO SCH (08:32)
[2018-08-17] MEDS: LISINOPRIL 2.5 MG TAB PO SCH (08:32)
[2018-08-17] MEDS: MAGNESIUM OXIDE 400 MG TAB PO SCH (08:32)
[2018-08-17] MEDS: RIVAROXABAN 15 MG TAB PO SCH (08:33)
[2018-08-17 10:24] LABS: Calcium 8.9 mg/dL (8.4-10.2); Potassium 4.4 mmol/L (3.5-5.1)
[2018-08-17 10:28] LABS: HCT 38.3 % (39.0-53.0); HGB 12.6 gm/dL (13.0-17.5); MCH 32.2 pg (25.0-35.0); MCHC 32.8 g/dL (31.0-37.0); MCV 98.3 fL (80.0-100.0); Platelet Count 251 k/uL (150-450); RDW 12.9 % (11.5-15.5); WBC 7.8 k/uL (3.8-10.6)
== END 2018-08-17 11:59 | disposition home or self-care (01) | DRG 872 ==
LOC: EC 10:02 → 4MS4W 13:42
PROVIDERS: ADMIT Internal Medicine; ATTEND Internal Medicine
DX: A41.9 Sepsis, unspecified organism (principal); N39.0 Urinary tract infection, site not specified; E11.22 Type 2 diabetes mellitus with diabetic chronic kidney disease; E78.5 Hyperlipidemia, unspecified; F17.200 Nicotine dependence, unspecified, uncomplicated; H40.9 Unspecified glaucoma; H91.90 Unspecified hearing loss, unspecified ear; I13.10 Hypertensive heart and chronic kidney disease without heart failure, with stage 1 through stage 4 chronic kidney disease, or unspecified chronic kidney disease; I48.0 Paroxysmal atrial fibrillation; M19.90 Unspecified osteoarthritis, unspecified site; N18.2 Chronic kidney disease, stage 2 (mild); N20.0 Calculus of kidney; N40.0 Benign prostatic hyperplasia without lower urinary tract symptoms; R32 Unspecified urinary incontinence; Z79.01 Long term (current) use of anticoagulants; Z79.84 Long term (current) use of oral hypoglycemic drugs; Z82.3 Family history of stroke; Z82.49 Family history of ischemic heart disease and other diseases of the circulatory system; Z83.3 Family history of diabetes mellitus; Z87.442 Personal history of urinary calculi; Z96.1 Presence of intraocular lens; Z98.42 Cataract extraction status, left eye; Z98.41 Cataract extraction status, right eye; B96.20 Unspecified Escherichia coli [E. coli] as the cause of diseases classified elsewhere
CPT/HCPCS: 36415; 74018; 80048; 80053; 81001; 82150; 83605; 83690; 83735; 85025; 85027; 85610; 85730; 87040; 87077; 87086; 87186; 93005; 96361; 96365; 96367; 99284

== ENCOUNTER 2019-01-22 02:24 | Emergency (ER) | payer MEDICARE, BC ==
[2019-01-22 02:32] VITALS: RESP 20; TEMP 98.3
[2019-01-22] MEDS ORDERED: IBUPROFEN 600 MG TAB PO STA (02:52)
[2019-01-22] MEDS ORDERED: ACETAMINOPHEN TAB 325 MG TAB PO STA (02:52)
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
[2019-01-22] MEDS: SODIUM CHLORIDE 0.9% 500 ML 500 ML IV SCH ×3 (03:13→04:10)
[2019-01-22 03:33] LABS: Basophils % (A) 0 %; Eosinophils # (A) 0.3 k/uL (0-0.7); Eosinophils % (A) 2 %; HCT 40.2 % (39.0-53.0); HGB 13.2 gm/dL (13.0-17.5); Lymphocytes # (A) 1.2 k/uL (1.0-4.8); Lymphocytes % (A) 9 %; MCH 30.6 pg (25.0-35.0); MCHC 32.7 g/dL (31.0-37.0); MCV 93.6 fL (80.0-100.0); Mean Platelet Volume 7.3; Monocytes # (A) 0.8 k/uL (0-1.0); Monocytes % (A) 6 %; Neutrophils # (A) 10.7 k/uL (1.3-7.7); Neutrophils % (A) 81 %; Platelet Count 268 k/uL (150-450); RDW 13.6 % (11.5-15.5); WBC 13.2 k/uL (3.8-10.6)
[2019-01-22 03:43] LABS: Calcium 9.6 mg/dL (8.4-10.2); Potassium 4.4 mmol/L (3.5-5.1); Total Bilirubin 0.9 mg/dL (0.2-1.3); Total Protein 6.5 g/dL (6.3-8.2)
[2019-01-22 03:53] LABS: INR 1.1 (<1.2); Partial Thromboplastin Time 27.1 sec (22.0-30.0); Prothrombin Time 11.4 sec (9.0-12.0)
--- NOTE | 2019-01-22 04:06 | XR ---
EXAM: XR Chest, 2 Views CLINICAL HISTORY: sepsis TECHNIQUE: Frontal and lateral views of the chest. COMPARISON: 11/06/2017 FINDINGS: Lungs: Unremarkable. No consolidation. Pleural space: Unremarkable. No pneumothorax. Heart: Unremarkable. No cardiomegaly. Mediastinum: Unremarkable. Bones/joints: No acute osseous abnormality. IMPRESSION: No acute cardiopulmonary process.
[2019-01-22 04:21] LABS: Appearance,Urine Clear (Clear); Bilirubin,Urine Negative (Negative); Blood,Urine Negative (Negative); Color,Urine Yellow; Glucose,Urine (UA) Negative (Negative); Ketones,Urine Negative (Negative); Leukocyte Esterase,Urine Negative (Negative); Nitrite,Urine Negative (Negative); PH, Urine 6.5 (5.0-8.0); Protein,Urine Negative (Negative); Specific Gravity,Urine 1.019 (1.001-1.035); Urobilinogen,Urine <2.0 mg/dL (<2.0)
[2019-01-22 05:44] VITALS: BP 134/79; PULSE 94
== END 2019-01-22 05:43 | disposition home or self-care (01) ==
LOC: EC 02:24
DX: B34.9 Viral infection, unspecified (principal); R00.0 Tachycardia, unspecified; I48.91 Unspecified atrial fibrillation; I12.9 Hypertensive chronic kidney disease with stage 1 through stage 4 chronic kidney disease, or unspecified chronic kidney disease; E11.22 Type 2 diabetes mellitus with diabetic chronic kidney disease; N18.2 Chronic kidney disease, stage 2 (mild); E11.40 Type 2 diabetes mellitus with diabetic neuropathy, unspecified; F17.200 Nicotine dependence, unspecified, uncomplicated; Z79.01 Long term (current) use of anticoagulants; Z79.84 Long term (current) use of oral hypoglycemic drugs; Z79.899 Other long term (current) drug therapy
CPT/HCPCS: 36415; 71046; 80053; 81003; 82550; 83605; 84484; 85025; 85610; 85730; 87040; 87086; 87502; 93005; 96360; 96361; 99285

== ENCOUNTER 2019-02-18 19:07 | Inpatient (IN) | payer MEDICARE, BC ==
[2019-02-18] MEDS ORDERED: SODIUM CHLORIDE 0.9% 500 ML IV STA (19:34)
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
[2019-02-18 20:02] LABS: Basophils % (A) 0 %; Eosinophils % (A) 0 %; HCT 38.9 % (39.0-53.0); HGB 12.6 gm/dL (13.0-17.5); Lymphocytes # (A) 0.7 k/uL (1.0-4.8); Lymphocytes % (A) 5 %; MCH 31.1 pg (25.0-35.0); MCHC 32.2 g/dL (31.0-37.0); MCV 96.5 fL (80.0-100.0); Mean Platelet Volume 7.1; Monocytes # (A) 0.9 k/uL (0-1.0); Monocytes % (A) 6 %; Neutrophils # (A) 12.6 k/uL (1.3-7.7); Neutrophils % (A) 88 %; Platelet Count 296 k/uL (150-450); RBC 4.03 m/uL (4.30-5.90); WBC 14.4 k/uL (3.8-10.6)
[2019-02-18 20:08] LABS: ALT 18 U/L (21-72); AST 24 U/L (17-59); Alkaline Phosphatase 107 U/L (38-126); Anion Gap 12 mmol/L; Blood Urea Nitrogen 28 mg/dL (9-20); Calcium 9.7 mg/dL (8.4-10.2); Carbon Dioxide 23 mmol/L (22-30); Chloride 104 mmol/L (98-107); Creatine Kinase 133 U/L (55-170); Glucose 365 mg/dL (74-99); Lipase 144 U/L (23-300); Magnesium 1.8 mg/dL (1.6-2.3); Potassium 5.2 mmol/L (3.5-5.1); Sodium 139 mmol/L (137-145); Total Bilirubin 0.6 mg/dL (0.2-1.3); Total Protein 6.6 g/dL (6.3-8.2)
[2019-02-18 20:09] LABS: Ammonia <9 umol/L (<30)
--- NOTE | 2019-02-18 20:25 | XR ---
EXAMINATION TYPE: XR chest 1V portable DATE OF EXAM: 02/18/2019 COMPARISON: 01/22/2019 HISTORY: Weakness fell in the shower today. Pain. TECHNIQUE: Single frontal view of the chest is obtained. FINDINGS: There are multiple old left-sided healed rib fractures. Heart size is normal. There is no heart failure. There is no pulmonary consolidation. There is no pleural effusion or pneumothorax. IMPRESSION: Numerous old left side rib fractures. No active cardiopulmonary disease. Inspiration dec reased slightly compared to old exam.
--- NOTE | 2019-02-18 20:27 | XR ---
Pelvis single view. History pain. Comparison 12/25/2017. FINDINGS: Pelvic ring is intact. Proximal femurs and hip joints are intact. There is no sign of hip dysplasia. Sacroiliac joints are intact. IMPRESSION: No acute abnormality of the pelvis. No fracture.
--- NOTE | 2019-02-18 20:39 | CT ---
EXAMINATION TYPE: CT brain esperanza atkins DATE OF EXAM: 02/18/2019 COMPARISON: 11/06/2017 HISTORY: Fall. CT DLP: 1310.3 mGycm Automated exposure control for dose reduction was used. TECHNIQUE: CT scan of the head and cervical spine are performed without contrast. FINDINGS: There is cerebral cortical atrophy. There is no mass effect nor midline shift. There is n o sign of intracranial hemorrhage. There is hypodensity in the periventricular white matter. The calv arium is intact. Cervical vertebra have normal alignment and spacing. There is large hypertrophic anterior bridging os teophyte formation from C2 to T1. The posterior elements are intact. Facet joints are intact. IMPRESSION: Cerebral atrophy and chronic small vessel ischemia. No change. No acute intracranial abnormality. Hypertrophic bridging osteophyte formation consistent with idiopathic skeletal hyperostosis. No fract ure seen of the cervical spine. No change.
--- NOTE | 2019-02-18 20:46 | XR ---
EXAMINATION TYPE: XR knee complete bilateral DATE OF EXAM: 02/18/2019 COMPARISON: NONE HISTORY: Knee pain TECHNIQUE: 3 views each knee FINDINGS: There is some narrowing of the medial joint spaces of both knees with spurring of the femor al and tibial condyles. I see no fracture nor dislocation. There is hypertrophic extensive spurring a t the tibial tubercles. There is spurring on the patella. There is no sign of joint effusion. There i s vascular calcification. There is mild meniscal calcification. 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 No fracture seen. Mild chondrocalcinosis.
[2019-02-18 21:09] LABS: Appearance,Urine Clear (Clear); Bilirubin,Urine Negative (Negative); Blood,Urine Negative (Negative); Color,Urine Yellow; Glucose,Urine (UA) 4+ (Negative); Ketones,Urine Trace (Negative); Leukocyte Esterase,Urine Negative (Negative); Nitrite,Urine Negative (Negative); Protein,Urine Trace (Negative); Specific Gravity,Urine 1.028 (1.001-1.035); Urobilinogen,Urine <2.0 mg/dL (<2.0)
[2019-02-18] MEDS ORDERED: HEPARIN SODIUM,PORCINE 5,000 UNIT/ML 1 ML VIAL IV PRN (21:16)
[2019-02-18] MEDS ORDERED: HEPARIN SODIUM,PORCINE 5,000 UNIT/ML 1 ML VIAL IV ONE (21:16)
[2019-02-18] MEDS ORDERED: HEPARIN SOD,PORK IN 0.45% NACL 25,000 UNIT in 0.45% NACL 1 250ML.BAG IV SCH (21:30)
[2019-02-18] MEDS ORDERED: cefTRIAXone IN SWFI 1,000 MG/10 ML SYRINGE IVP STA (21:40)
[2019-02-18] MEDS ORDERED: ONDANSETRON 4 MG/2 ML VIAL IVP PRN (21:42)
[2019-02-18] MEDS ORDERED: NALOXONE 0.4 MG/ML 1 ML VIAL IV PRN (21:42)
[2019-02-18] MEDS ORDERED: LEVOFLOXACIN 250 MG TAB PO STA (21:42)
[2019-02-18] MEDS ORDERED: ASPIRIN 81 MG PO STA (21:46)
[2019-02-18] MEDS: SODIUM CHLORIDE 0.9% 1,000 ML IV SCH (22:05)
[2019-02-19] MEDS: ACETAMINOPHEN TAB 325 MG TAB PO PRN ×2 (06:04→14:58)
[2019-02-19 06:34] LABS: Glucose,Whole Blood 259 mg/dL (75-99)
[2019-02-19] MEDS: INSULIN ASPART (NovoLOG) 100 UNIT/ML VIAL SQ SCH ×4 (06:51→21:11)
[2019-02-19] MEDS: PANTOPRAZOLE 40 MG/10 ML VIAL IV SCH ×2 (09:19→13:06)
--- NOTE | 2019-02-19 10:39 | CONS ---
ISHA Underwood is an 88-year-old gentleman with history of hypertension, diabetes, and atrial fibrillation, presented to hospital having had falls at home. Patient states that he was doing fine up until 2 days ago and twice where he became weak and went down. He did not lose consciousness, did not have focal neurological deficits. He states that he just feels extremely weak in his legs and fell down. Patient has not been eating as much as he should. He; however, denies any other symptoms. He denies chest pain, difficulty in breathing, palpitations, or syncope. On his presentation to the emergency room, they did a troponin on him and subsequently admitted him to hospital. He has had only 1 troponin and it is at 0.04 and I do not have any further tropes on him. His BNP is normal, but he has mild leg edema. PAST MEDICAL HISTORY: Significant for atrial fibrillation and [id number] diabetes. MEDICATIONS: At home included metformin, Glucotrol, Xarelto 15 mg daily, metoprolol 25 t.i.d., Zestril and magnesium. ALLERGIES: No known drug allergies. FAMILY HISTORY: Negative for premature coronary artery disease. SOCIAL HISTORY: Negative for smoking. There is no history of EtOH abuse or drug abuse. REVIEW OF SYSTEMS: HEENT: Unremarkable. CARDIAC: As described above. RESPIRATORY: As described above. GI: Negative. GENITOURINARY: As described above. PSYCHOSOCIAL: Negative. ENDOCRINE: Negative. CONSTITUTIONAL: As described above. Rest of the system review is not relevant. PHYSICAL EXAM: Comfortable at rest. Heart rate is 107 beats per minute, irregular. Blood pressure is 108/64, respiratory rate is 18. Chest exam reveals good air entry bilaterally. Heart exam reveals first and second heart sounds. No gallop. Has a systolic murmur at the apex. Abdomen is soft. Exam of extremities revealed 1+ edema bilaterally. LABS: Show that the creatinine is 0.8. Troponin is mildly elevated at 0.04. BNP is normal. EKG shows sinus tachycardia. ASSESSMENT: 1. Mild troponin elevation of unclear clinical significance in this patient who does not have any cardiac symptoms. 2. Sinus tachycardia. 3. History of paroxysmal atrial fibrillation. 4. Bda-jaahjjs-sgufzczyu diabetes. PLAN: I will obtain a 2D echo. I will obtain another set of troponin. If his LV function is normal, wall motion is normal and tropes do not go up any further, his troponin elevation could be related to the elevated BUN. If he developed wall motion abnormalities, troponin elevation, then we will continue heparin and he may need invasive angiography. Thank you for allowing us to participate in this pleasant gentleman. JAVAD / USAMA: [id number] /
[2019-02-19 11:16] LABS: Glucose,Whole Blood 102 mg/dL (75-99)
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
[2019-02-19] MEDS: glipiZIDE 10 MG TAB PO SCH ×2 (13:06→21:11)
[2019-02-19] MEDS: MULTIVITAMINS, THERA 1 EACH TAB PO SCH (13:06)
[2019-02-19] MEDS: RIVAROXABAN 15 MG TAB PO SCH (13:06)
[2019-02-19] MEDS: metFORMIN 500 MG TAB PO SCH ×2 (13:06→21:11)
[2019-02-19] MEDS: METOPROLOL SUCCINATE (ER) 25 MG TAB.ER.24H PO SCH (13:06)
[2019-02-19] MEDS: LISINOPRIL 2.5 MG TAB PO SCH (13:07)
--- NOTE | 2019-02-19 13:50 | ECHOF ---
Referral Reason:falls MEASUREMENTS -------- HEIGHT: 182.9 cm WEIGHT: 94.8 kg BP: IVSd: 1.0 cm (0.6 - 1.1) LVIDd: 2.4 cm (3.9 - 5.3) LVPWd: 1.4 cm (0.6 - 1.1) IVSs: 1.5 cm LVIDs: 1.6 cm LVPWs: 1.5 cm Ao Diam: 3.2 cm (2.0 - 3.7) AV Cusp: 1.7 cm (1.5 - 2.6) LA Diam: 2.0 cm (2.7 - 3.8) MV EXCURSION: 7.983 mm (> 18.000) MV EF SLOPE: 96 mm/s (70 - 150) EPSS: 0.9 cm MV E Terrell: 0.82 m/s MV DecT: 197 ms MV A Terrell: 1.23 m/s MV E/A Ratio: 0.66 RAP: 5.00 mmHg RVSP: 10.33 mmHg FINDINGS -------- Sinus rhythm. This was a technically difficult study with suboptimal views. The left ventricular size is normal. There is mild concentric left ventricular hypertrophy. Overa ll left ventricular systolic function is normal with, an EF between 55 - 60 %. The right ventricle is normal in size. The left atrial size is normal. The right atrial size is normal. Lumason used The aortic valve is trileaflet and appears structurally normal. There is trace mitral regurgitation. Trace tricuspid regurgitation present. The right ventricular systolic pressure, as measured by Dopp ler, is 10.33mmHg. There is no pulmonic regurgitation present. The aortic root size is normal. IVC Not well visulized. There is no pericardial effusion. CONCLUSIONS -------- 1. Sinus rhythm. 2. This was a technically difficult study with suboptimal views. 3. The left ventricular size is normal. 4. There is mild concentric left ventricular hypertrophy. 5. Overall left ventricular systolic function is normal with, an EF between 55 - 60 %. 6. The right ventricle is normal in size. 7. The left atrial size is normal. 8. The right atrial size is normal. 9. Lumason used 10. The aortic valve is trileaflet and appears structurally normal. 11. There is trace mitral regurgitation. 12. Trace tricuspid regurgitation present. 13. The right ventricular systolic pressure, as measured by Doppler, is 10.33mmHg. 14. There is no pulmonic regurgitation present. 15. The aortic root size is normal. 16. IVC Not well visulized. 17. There is no pericardial effusion. CARBURETOR SPECIALIST: Kellie Joseph RDCS
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
[2019-02-19 15:46] VITALS: RESP 16
[2019-02-19 16:44] LABS: Glucose,Whole Blood 187 mg/dL (75-99)
[2019-02-19 20:34] LABS: Glucose,Whole Blood 173 mg/dL (75-99)
[2019-02-19] MEDS ORDERED: LATANOPROST 0.005% OPHTH DROPS 2.5 ML BTL BOTH EYES SCH (21:00)
[2019-02-19] MEDS: SODIUM CHLORIDE 0.9% 1,000 ML IV SCH (21:03)
[2019-02-19] MEDS: VIT A,C & E-LUTEIN-MINERALS 1 EACH TAB PO SCH (21:11)
--- NOTE | 2019-02-19 23:08 | P.CON ---
Consult Note - . Consult date: 02/19/19 Assessment/Plan:: This is an 88-year-old male gives history that he had a fall twice yesterday outside in the grass. He denies having syncope. After his left the house, he went outside and decided to get on his farm tractor and drive [place] to see how wet they were. Patient apparently had the tractor running but ended up falling and had to wait for his and daughter, home and help him up. His gives history that he had a similar episode at the end of December after going to [email or web address] in a bus. White count that time was 13.2. He did not have a documented fever. Patient was provided 1.5 L of IV fluid and was given Tylenol and Advil and discharged home. The patient came into [facility] emergency center for evaluation. Head CAT scan showed chronic changes. Chest x-ray showed old rib fractures no active cardio pulmonary disease. Pelvic x-ray was negative and the x-ray showed osteoarthritis. White count was 14.4, hemoglobin 12.6 and platelet count 296. Potassium 5.2 other electrolytes within normal limits, creatinine 0.83 with BUN of 28. Blood sugar was 365. Lactic acid initially 5.0 on repeat 1.6. Troponin was 0.040. Liver function tests within normal limits. Urinalysis was negative for infection. There was trace protein and trace ketones. Urine culture and blood culture in progress. Patient was admitted to the cardiac stepdown unit. He was initially placed on heparin drip which was discontinued. He was provided antibiotics with ceftriaxone and Levaquin in the ER. Patient does state that he is feeling much better today. Cardiology is also on consult. Patient and his family state he has not had any change in mentation. Please see the consult as dictated by nurse practitioner Bobo Barb Goetz. This elderly gentleman presents to Hospital with significant change of his status. At admission there was evidence of generalized weakness systemic inflammation with lactic acidosis, dehydration and troponin leak. With hydration the patient has had a marked improvement of his status. He did have leukocytosis and constantly was concerns to infection. Antibiotic therapy has been initiated and workup is in process. There is no distinct source of sepsis at this point in time. Urine culture, blood cultures are pending and negative so far. The patient suffered a fall appears not to have had syncope, which can be on the basis of metabolic changes and dehydration. Will de-escalate and limited antibiotic therapy quickly depending on patient's response and cultures over the next short period of time. I agree with evaluation, assessment and plan as dictated by nurse practitioner Mrs. Barb Goetz.
[2019-02-20 05:57] LABS: Glucose,Whole Blood 124 mg/dL (75-99)
[2019-02-20] MEDS ORDERED: PANTOPRAZOLE 40 MG TABLET PO SCH (07:30)
[2019-02-20] MEDS: INSULIN ASPART (NovoLOG) 100 UNIT/ML VIAL SQ SCH ×2 (07:42→12:28)
[2019-02-20 08:06] LABS: Basophils % (A) 0 %; Eosinophils # (A) 0.4 k/uL (0-0.7); Eosinophils % (A) 4 %; HCT 37.8 % (39.0-53.0); Lymphocytes # (A) 1.3 k/uL (1.0-4.8); Lymphocytes % (A) 15 %; MCH 30.4 pg (25.0-35.0); MCHC 31.6 g/dL (31.0-37.0); Mean Platelet Volume 6.7; Monocytes # (A) 0.7 k/uL (0-1.0); Monocytes % (A) 8 %; Neutrophils # (A) 6.5 k/uL (1.3-7.7); Neutrophils % (A) 71 %; Platelet Count 290 k/uL (150-450); RBC 3.94 m/uL (4.30-5.90); RDW 13.2 % (11.5-15.5); WBC 9.2 k/uL (3.8-10.6)
[2019-02-20] MEDS: MULTIVITAMINS, THERA 1 EACH TAB PO SCH (08:19)
[2019-02-20] MEDS: glipiZIDE 10 MG TAB PO SCH (08:19)
[2019-02-20] MEDS: LISINOPRIL 2.5 MG TAB PO SCH (08:19)
[2019-02-20] MEDS: VIT A,C & E-LUTEIN-MINERALS 1 EACH TAB PO SCH (08:19)
[2019-02-20] MEDS: RIVAROXABAN 15 MG TAB PO SCH (08:19)
[2019-02-20] MEDS: METOPROLOL SUCCINATE (ER) 25 MG TAB.ER.24H PO SCH (08:19)
[2019-02-20] MEDS: metFORMIN 500 MG TAB PO SCH (08:19)
[2019-02-20 08:21] LABS: ALT 26 U/L (21-72); AST 29 U/L (17-59); Albumin 3.7 g/dL (3.5-5.0); Alkaline Phosphatase 84 U/L (38-126); Anion Gap 9 mmol/L; Blood Urea Nitrogen 17 mg/dL (9-20); Carbon Dioxide 25 mmol/L (22-30); Chloride 106 mmol/L (98-107); Glucose 120 mg/dL (74-99); Potassium 4.6 mmol/L (3.5-5.1); Sodium 140 mmol/L (137-145); Total Bilirubin 0.7 mg/dL (0.2-1.3); Total Protein 6.3 g/dL (6.3-8.2)
[2019-02-20 08:22] LABS: Prothrombin Time 10.5 sec (9.0-12.0)
[2019-02-20 08:23] VITALS: BP 133/76; PULSE 120; TEMP 98.5
[2019-02-20] MEDS ORDERED: MAGNESIUM OXIDE 400 MG TAB PO SCH (09:00)
[2019-02-20 11:53] LABS: Glucose,Whole Blood 237 mg/dL (75-99)
--- NOTE | 2019-02-20 14:08 | P.DS ---
Providers Date of admission: 02/18/19 21:42 Attending physician: Rogers King Consults: 02/18/19 21:47 Consult Physician Routine Consulting Provider: Rogers Rehman Consult Reason/Comments: evaluate for sepsis Do you want consulting provider notified?: Yes 02/18/19 23:38 Consult Physician Routine Consulting Provider: Alejandro Knight Consult Reason/Comments: elevated troponin Do you want consulting provider notified?: Yes Primary care physician: [facility] Course: Chief Complaint: Sepsis, fever and chills, possible aspiration pneumonia, dysphagia, CAD 88-year-old male one of our office patient with multiple medical problem known to have history of A. fib, type 2 diabetes, severe osteoarthritis, BPH, chronic kidney disease and multiple arthritis who lives at home with family member to help him out. Apparently was left by himself he walked to the barn to start his tractor and go work in the yard when he fell and was on the ground for. This time found by his family mildly confused not been able to stand up and walk ended up bringing [facility] where was seen and evaluated found to have mildly elevated temperature. Lactic acid was 1.6 troponin was borderline UA was negative. Multiple x-ray were done in the ER including chest x-ray, pelvic x-ray, cervical spine and CT of the brain no major injury was found. Blood sugar was quite but elevated 365 patient white blood cell was 14,400 with left shift, patient was giving 1 dose of Rocephin and Levaquin with elevated troponin and the current problem specially not been able to ambulate and walk have mild altered mental status decided to admit patient to the hospital for the above problem. 02/20: Patient is doing very well no further fever or chills is not weak able template to walk, was cleared by cardiology and cleared by infectious disease patient will be continue manage for bronchitis no sign of pneumonia or any type of sepsis his white blood cell is down no fever or chills and hemodynamically very stable discussed with the significant other is management and plan and agreeable to go home today on oral antibiotics to follow as an outpatient in the next few days. Review of systems: CONSTITUTIONAL: Well-developed no acute respiratory distress. Look older than his age [place] to confuse. EYES: No icterus sclerae, no conjunctivitis. EARS, NOSE, MOUTH, THROAT, and FACE: No sore throat, lymphadenopathy, carotid bruits or deformity. Cervical spine is very stiff patient had so much secretion the back of his throat with mild stage of labor when he tried to swallow his saliva. RESPIRATORY: Positive shortness of breath cough mild wheezes. CARDIOVASCULAR: Positive PND orthopnea and palpitation. GASTROINTESTINAL: Positive abdominal pain with nausea without vomiting, no Diarrhea or constipation, No GI Bleed, no distention or masses. GENITOURINARY: Negative for Hematuria or UTI, no kidney stones. INTEGUMENT/BREAST: Negative for any muscular injury with mild osteoarthritis.. Multiple arthralgia. HEMATOLOGIC/LYMPHATIC: Negative for bleed or purpura. MUSCULOSKELTAL: Negative for Myalgia or arthralgia. Positive pelvic pain, hip pain in the right side, bilateral shoulder pain and neck pain as well. NEURLOGICAL: No LOC, Sz or syncope, blurred vision dizziness or abnormality.. BEHAVIORAL/PSYCH: Negative. ENDOCRINE: Negative. Physical examination: General Appearance: Alert, cooperative, no distress, appears stated age. Neck HEENT: Very thick secretions the back of his throat with mild dysphagia very minimum lymph node enlargement in the neck area. No carotid bruits. Lungs: Positive rhonchi bilaterally worse in the right side the left side with fine crackles positive mild inspiratory expiratory wheezes.. Chest Wall: Decrease expansion with deep inspiration no tenderness and no deformity was found on exam, no costochondral pain or discomfort. Heart: Irregular rate and rhythm, S1, S2 positive the street positive JVD with 2/6 ejection systolic murmur. no rub or gallop. Back: Symmetric, mild curvature quite bit low back pain. Abdomen: Soft, non-tender, bowel sounds active all four quadrants, no masses, no organomegaly. Extremities: Trace edema positive slight discoloration from the knee down with mild arthritis in both knees and hips with slight limited mobility. Pulses: 2+ and symmetric. Skin: Skin color, texture, tugor normal, no rashes or lesions. Neurologic: Alert oriented x3 cranial nerves II through XII intact, no motor deficit, positive abnormal gait imbalance. Assessment and Plan Plan: 1 sepsis: Was clear so far no sign of infection cultures negative patient is a clear from ID standpoint on the finding still an early stage of aspiration pneumonia along with severe bronchitis which will be treated with oral antibiotic for now especially with the patient feeling much better. 2 multiple falls: Evaluated by PTOT and was clear patient is able template and walk on his own. 3 aspiration pneumonia: Clinical picture is very positive to it continue patient on updraft treatment along with Rocephin and smaller dose of Levaquin. Which will be completed the treatment as an outpatient. 4 mild COPD: Patient still smokes pipe several times a day will continue patient on DuoNeb and Pulmicort continue O2 and supportive care. Refused to stay on any updraft treatment patient will be on rescue inhaler and continue steroid tapering dose for the next 12 days. 5 type 2 diabetes: Has been on metformin 1000 g twice a day along with glipizide 10 mg twice a day continue Accu-Chek with sliding scale coverage as well. 6 A. fib with RVR: Pulse rates under control currently on metoprolol 25 mg 3 times a day along with Xarelto 15 mg daily. 7 hypertension: Remain on metoprolol along with lisinopril. 8 mild altered mental status: Most likely secondary to infection treat underly ing disease continue to watch patient's neuro exam every few hours, CT of the brain was negative for this point and if this is was any abnormality most likely is metabolic encephalopathy. 9 elevated troponin: Patient be seen cardiology no need for any surgical intervention continue to watch troponin repeat echocardiogram again this time less than is any further abnormality with arrhythmia elevated troponin and change in EKG no need to consider any invasive cardiac testing like heart cath. 10 severe cervicalgia and neck pain: Apparently patient has been treated for cervical spine arthritis and been managed with medication. 11 dysphagia: Apparently seen in nose and throat specialist before and was told that he had mild symptoms consistent with the area around his vocal cord mostly more than the esophagus which can be oral dysphagia continue to watch patient's symptoms, consult with speech and try not to eat while he is laying down. 12 BPH: Patient will be watch for any urinary retention. 13 GI prophylaxis: Patient be on omeprazole 20 mg daily. Patient was ready to be discharged today 02/20/2019, patient and significant other refuse follow-up with home care. Patient Condition at Discharge: Stable Plan - Discharge Summary New Discharge Prescriptions: New Amoxicillin 500 mg PO Q8HR #21 ml guaiFENesin-DM 600/30MG [Mucinex Dm] 1 each PO Q12HR #20 tab.er.12h predniSONE 10 mg PO DAILY #15 tab Acetaminophen Tab [Tylenol] 650 mg PO Q6HR PRN tab PRN Reason: Mild Pain Or Fever > 100.5 Continue Lisinopril [Zestril] 2.5 mg PO QAM glipiZIDE [Glucotrol] 10 mg PO BID metFORMIN HCL [Metformin HCl] 1,000 mg PO BID Multivitamins, Thera [Multivitamin (formulary)] 1 tab PO DAILY Magnesium Gluconate [Magonate] 500 mg PO DAILY Latanoprost/Pf [Latanoprost 0.005% Eye Drop] 1 drop BOTH EYES HS Rivaroxaban [Xarelto] 15 mg PO DAILY Metoprolol Tartrate 25 mg PO TID Vit C/E/Zn/Coppr/Lutein/Zeaxan [Preservision Areds 2 Softgel] 1 cap PO BID Discharge Medication List Lisinopril [Zestril] 2.5 mg PO QAM 05/25/15 [History] glipiZIDE [Glucotrol] 10 mg PO BID 10/03/16 [History] metFORMIN HCL [Metformin HCl] 1,000 mg PO BID 03/22/17 [History] Multivitamins, Thera [Multivitamin (formulary)] 1 tab PO DAILY 09/10/17 [History] Latanoprost/Pf [Latanoprost 0.005% Eye Drop] 1 drop BOTH EYES HS 08/14/18 [History] Magnesium Gluconate [Magonate] 500 mg PO DAILY 08/14/18 [History] Metoprolol Tartrate 25 mg PO TID 08/14/18 [History] Rivaroxaban [Xarelto] 15 mg PO DAILY 08/14/18 [History] Vit C/E/Zn/Coppr/Lutein/Zeaxan [Preservision Areds 2 Softgel] 1 cap PO BID 02/18/19 [History] Acetaminophen Tab [Tylenol] 650 mg PO Q6HR PRN tab 02/20/19 [Rx] Amoxicillin 500 mg PO Q8HR #21 ml 02/20/19 [Rx] guaiFENesin-DM 600/30MG [Mucinex Dm] 1 each PO Q12HR #20 tab.er.12h 02/20/19 [Rx] predniSONE 10 mg PO DAILY #15 tab 02/20/19 [Rx] Follow up Appointment(s)/Referral(s): Ze Ribera MD [Medical Doctor] - 02/26/19 11:45 am () [facility], [NON-STAFF] - Activity/Diet/Wound Care/Special Instructions: pt may needs indigent funds-has [facility] coverage Discharge Disposition: HOME WITH HOME HEALTH SERVICES
== END 2019-02-20 13:49 | disposition home health service (06) | DRG 177 ==
LOC: EC 19:07 → 3SCARD 21:42
PROVIDERS: ADMIT Internal Medicine Geriatric Medicine; ATTEND Internal Medicine Geriatric Medicine
DX: J69.0 Pneumonitis due to inhalation of food and vomit (principal); G93.41 Metabolic encephalopathy; E87.2 Acidosis; J44.0 Chronic obstructive pulmonary disease with (acute) lower respiratory infection; E11.22 Type 2 diabetes mellitus with diabetic chronic kidney disease; E11.65 Type 2 diabetes mellitus with hyperglycemia; F17.290 Nicotine dependence, other tobacco product, uncomplicated; H40.9 Unspecified glaucoma; H91.90 Unspecified hearing loss, unspecified ear; I12.9 Hypertensive chronic kidney disease with stage 1 through stage 4 chronic kidney disease, or unspecified chronic kidney disease; I48.0 Paroxysmal atrial fibrillation; J40 Bronchitis, not specified as acute or chronic; M46.92 Unspecified inflammatory spondylopathy, cervical region; N18.2 Chronic kidney disease, stage 2 (mild); N40.0 Benign prostatic hyperplasia without lower urinary tract symptoms; R13.11 Dysphagia, oral phase; R29.6 Repeated falls; W19.XXXA Unspecified fall, initial encounter; Z79.01 Long term (current) use of anticoagulants; Z79.84 Long term (current) use of oral hypoglycemic drugs; Z79.899 Other long term (current) drug therapy; Z82.3 Family history of stroke; Z82.49 Family history of ischemic heart disease and other diseases of the circulatory system; Z83.3 Family history of diabetes mellitus; Z87.442 Personal history of urinary calculi; Z98.42 Cataract extraction status, left eye; Z98.41 Cataract extraction status, right eye; Z96.1 Presence of intraocular lens; R74.8 Abnormal levels of other serum enzymes
CPT/HCPCS: 36415; 70450; 71045; 72125; 72170; 80053; 81003; 82140; 82550; 83605; 83690; 83735; 83880; 84484; 85025; 85610; 85730; 87040; 87086; 93005; 93306; 96361; 96365; 96366; 96368; 96376; 99285

== ENCOUNTER → 2020-07-08 | Outpatient (CLI) | payer MEDICARE, BC ==
--- NOTE | 2020-07-08 11:42 | XR ---
EXAMINATION TYPE: XR KUB DATE OF EXAM: 07/08/2020 COMPARISON: 08/14/2018 HISTORY: Right flank pain TECHNIQUE: One view abdominal series FINDINGS: The osseous structures are intact. The bowel gas pattern is nonspecific. Hypertrophic degenerative c hange of the spine. There is arthropathy of the hips correlate for femoral acetabular impingement. Nu merous vascular calcifications are seen. Calcifications in the pelvis are stable from the prior exam a nonspecific but likely vascular. Density overlying the right sacrum measuring 3 mm is indeterminate but stable Left renal outline demonstrates no definitive calcifications. Right renal outline demonstrates 2 mm punctate calcification.. IMPRESSION: 1. Nonspecific abdomen. 2. Possible tiny lower pole right renal calculus measuring 2 mm. Pelvic calcifications stable from th e prior exam and likely.
== END | disposition home or self-care (01) ==
LOC: RADXRMAIN 11:05
PROVIDERS: ATTEND Urology
DX: N20.0 Calculus of kidney (principal)
CPT/HCPCS: 74018